=== PATIENT | female | born 1940 | race Caucasian/White ===

== ENCOUNTER → 2017-01-26 | Outpatient (CLI) | payer MEDICARE, OTHER ==
[~2017-01-26] MED LIST: AMLO5TAB2 PO; ASPI-557 PO; CALC-727 PO; CEPH500C2 PO; CETI10CA19 PO; FURO40TA5 PO; GLUC-176 PO; LISI-621 PO; ONDA-55 PO; OXYC1TAB8 PO; RANI150T7 PO; SIMV20TA6 PO; SOTA80TA PO; WARF4TAB6 PO
[2017-01-26 10:30] LABS: ALBUMIN 4.1 G/DL (3.5-5.0); ALBUMIN/GLOBULIN RATIO 1.4 RATIO (1.1-2.2); ALKALINE PHOSPHATASE 75 U/L (38-126); ALT (SGPT) 23 U/L (9-52); ANION GAP 11 MEQ/L (5-15); AST (SGOT) 27 U/L (14-36); BUN/CREATININE RATIO 25 RATIO (6-26); CHLORIDE 105 MEQ/L (98-107); CO2 - CARBON DIOXIDE 29 MEQ/L (22-30); CREATININE 0.8 MG/DL (0.7-1.2); GLOMERULAR FILTRATION RATE 70; GLUCOSE 89 MG/DL (65-110); MAGNESIUM 2.1 MG/DL (1.6-2.3); POTASSIUM 4.1 MEQ/L (3.6-5); SODIUM 145 MEQ/L (134-144)
[2017-01-28 00:36] LABS: LDL CHOLESTEROL,CALCULATED 122.4 (66-159); RISK FACTOR 4.6 RATIO (0-4.0); VLDL CHOLESTEROL 23.6 MG/DL (0-28)
== END ==
LOC: LAB 10:03
PROVIDERS: ATTEND Internal Medicine
DX: E78.5 Hyperlipidemia, unspecified (principal); I48.91 Unspecified atrial fibrillation; I10 Essential (primary) hypertension; Z79.899 Other long term (current) drug therapy
CPT/HCPCS: 36415; 80053; 80061; 83735

== ENCOUNTER 2017-06-10 07:30 | Inpatient (IN) ==
--- NOTE | 2017-07-14 16:48 | Orthopedic History & Physical ---
Orthopedic HPI - HPI Comments Araseli complains of moderate left knee pain. It has been present for years and is described as dull. It is worse with weather changes, prolonged sitting or activity. She has pain at night that awakens her from sleep and cannot walk distances due to pain / weakness /deformity. She has tried Tylenol, steroid injections and rest. She cannot take nsaids due to being on Coumadin. She takes Coumadin for prevention of DVT and PE that she had in the past. Araseli is wanting to proceed with TKA. [facility] Patient Stated Medical History Cerebrovascular Accident Yes: per ortho h&p Peripheral Neuropathy Yes Transient Ischemic Attacks ( Yes: per h&p TIA) Hypertension Yes Pulmonary Embolism Yes: and DVT Sleep Apnea No Gastroesophageal Reflux Yes Disease Hx Incontinence Yes Osteoarthritis Yes Clinic Medical History (Last Reviewed 05/03/17 @ 15:58 by Mike King MD) Atrial fibrillation (Acute Medical) Breast cancer (Acute Medical) GERD (gastroesophageal reflux disease) (Acute Medical) High blood pressure (Acute Medical) High cholesterol (Acute Medical) Neuropathy (Acute Medical) Pacemaker (Acute Medical) Pneumonia (Acute Medical) Stroke (Acute Medical) Family History: Family History (Last Reviewed 05/03/17 @ 15:58 by Mike King MD) Mother Breast cancer Sister Breast cancer Brother Colon cancer - Social History Smoking status: Never smoker Review of Systems - Constitutional Constitutional: Absent: chills, fatigue, fever(s) - Cardiovascular Cardiovascular: Absent: chest pain, palpitations, syncope - Respiratory Respiratory: Absent: cough, dyspnea, hemoptysis, dyspnea on exertion - Gastrointestinal Gastrointestinal: Absent: abdominal pain, diarrhea, nausea, vomiting - Musculoskeletal Musculoskeletal: Present: as per HPI - Integumentary/Breasts Integumentary: Absent: lesions, wounds - Neurological Neurological: Absent: numbness, tingling - Hematologic/Lymphatic Hematologic/Lymphatic: Present: easy bruising (She is on Coumadin.) Medications Home Medications Medication Instructions Recorded Confirmed Type Amlodipine Besylate 5 mg PO DAILY #0 01/19/15 05/03/17 History Aspirin [Aspir 81] 81 mg PO DAILY #0 01/19/15 05/03/17 History Cetirizine HCl [Zyrtec] 10 mg PO DAILY #0 01/19/15 05/03/17 History Furosemide 20 mg PO QOD #0 01/19/15 05/03/17 History Simvastatin 20 mg PO HS #0 01/19/15 05/03/17 History raNITIdine HCl [Ranitidine HCl] 150 mg PO HS #0 01/19/15 05/03/17 History Calcium Carbonate/Vitamin D3 1 tab PO BID #0 02/11/16 05/03/17 History [Calcium 600-Vit D3 200 Tablet] Lisinopril 20 mg PO BID #0 02/11/16 05/03/17 History Warfarin Sodium 4 mg PO DAILY #0 02/11/16 07/14/17 History Gabapentin [Gabapentin] 300 mg PO HS 05/03/17 05/03/17 History Mirabegron [Myrbetriq] 25 mg PO HS 05/03/17 05/03/17 History Protonix (Pantoprazole)40 mg 40 mg PO DAILY 90 Days 05/03/17 05/03/17 History tablet,delayed release glucosamine-chondroitin 250 mg-200 1 tab PO BID tab 05/03/17 05/03/17 History mg tablet sotalol 80 mg tablet 80 mg PO BID #0 tab 05/03/17 05/03/17 History Enoxaparin [Lovenox] 80 mg SQ BID 07/14/17 07/14/17 History Allergies Allergy/AdvReac Type Severity Reaction Status Date / Time budesonide Allergy Unknown Hives Verified 07/12/17 11:26 Orthopedic Exam - Constitutional General Appearance: Present: alert, cooperative, no acute distress - Respiratory Exam Present: non-labored - Cardiovascular Exam Present: pedal pulses intact Capillary Refill: < 2-3 Seconds - Abdominal Exam Present: soft. Absent: tenderness, distended - Extremities Exam Present: pulses intact, normal capillary refill. Absent: calf tenderness - Knee Exam left Knee Exam: Present: tender along joint line, Valgus deformity, stable to ligament exam, effusion - Integumentary Exam Present: pink, warm, dry - Neurological Exam Present: intact to light touch, no deficits - Psychiatric Exam Present: alert, normal affect Orthopedic Assessment and Plan (1) Primary osteoarthritis of left knee Status: Acute Assessment and Plan: Due to severity of symptoms, xray findings, and failure of non-surgical treatment, Dr King has recommended a left TKA. Risk, benefits, alternative treatments, and possible complications of surgery were discussed. Questions were answered to her satisfaction. Plan f/u 3 weeks post op. - Anticoagulation Therapy Anticoagulation: Resume home anticoagulant Hospital Course Summary Disclaimer: The visit summary below is not to be considered part of the above Progress Note.
[2017-07-15] MEDS ORDERED: FAMOTIDINE PB 20 MG/50 ML BAG IV ONE (06:00)
[2017-07-15] MEDS ORDERED: METOCLOPRAMIDE 10mg/2ml INJECTION IVP ONE (06:00)
[2017-07-15] MEDS ORDERED: LIDOCAINE 1% (10mg/ml) 2mL INJ PF SDV ID ONE (06:00)
[2017-07-15] MEDS ORDERED: DEXAMETHASONE 4 MG/ML INJECTION IVP ONE (06:00)
[2017-07-15] MEDS ORDERED: ONDANSETRON 4 MG/2 ML INJECTION IVP ONE (06:00)
[2017-07-15] MEDS ORDERED: ACETAMINOPHEN 500 MG TABLET PO ONE (06:00)
[2017-07-15] MEDS ORDERED: NOZIN NASAL SWAB NAS ONE ×2 (06:00→12:13)
--- OUTSIDE RECORDS SUMMARY | 2017-07-15 06:45 | External Medical Summary ---
:1940 Author Organization eClinicalWorks Care Team Providers Name Role Phone Valarie Gil Provider Role Unavailable Allergies, Adverse Reactions, Alerts Substance Reaction Event Type N.K.D.A. 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 Active Medications Medication Code Code Instructions Start End Date Status Dos[place] [address]-53 80 MG Orally 1 tablet 61-01 Twice a [place] Calcium + [place] [address]-14 600-200 MG-UNIT not defined 56-52 Orally Pantoprazole NDC 15837-71 40 MG Orally 1 tablet Sodium 07-01 Once a day Furosemide NDC 13171-30 40 MG Orally 1/2 tablet 99-25 [place] [address]-92 Orally not defined Triple Strength 120 Allergy Relief NDC 39561-60 10 MG Orally 1 tablet 12-39 Once a day Pantoprazole NDC 58061-45 40 MG Orally BID March 21, tablet Sodium 07-01 for 4 weeks then 2014 one tab a day Ranitidine & NDC 0 150 MG Orally 1 tablet Diet Manage Prod [place] [address]-52 4 MG Orally Once 1 tablet 04-01 [place] [address]-35 20 MG Orally 1 tablet in 54-10 Once [place] [address]-06 20 MG Orally 1 tablet 68-01 [place] [address]-01 5 MG Orally Once 1 tablet Besylate 01-20 a day Aspirin Adult NDC 11178-74 81 MG Orally 1 tablet Low Strength 77-48 Once a day Procedures Procedure Coding System Code Date Office Visit, Est Pt., Level 3 CPT-4 94317 March 21, 2015 Vital Signs Date/Time: March 21, 2015 Blood Pressure Systolic 130 mm Hg Weight 188.2 lbs Height 67 in BMI 29.47 Index Respiratory Rate 16 /min Cardiac Monitoring Heart Rate 68 /min Blood Pressure Diastolic 82 mm Hg Results Name Result Date Reference Range Unit Abnormality Flag CT Scan : Abdomen / Pelvis with contrast, Pancreatic Protocol Summary Purpose eClinicalWorks Submission
--- OUTSIDE RECORDS SUMMARY | 2017-07-15 06:45 | External Medical Summary | Referral Summary ---
:1940 Author Organization [facility] Address [address] [address] Care Team Providers Name Role Phone Tyson Chen Primary Care Physician Encounter VC Date(s): 11/30/16 - 11/30/16 [facility] [address] [address] [place] Discharge Diagnosis: Acute maxillary sinusitis Discharge Disposition: 01-Home or Self Care Attending Physician: Tyson Chen DO Vital Signs Most recent to oldest [Reference Range]: 1 Temperature Tympanic [36.6-38.1 degC] 36.5 degC *LOW* (11/30/16 11:13 AM) Peripheral Pulse Rate [60-100 bpm] 88 bpm (11/30/16 11:13 AM) Respiratory Rate [14-20 br/min] 16 br/min (11/30/16 11:13 AM) Blood Pressure [90-140/60-90 mmHg] 132/84 mmHg (11/30/16 11:13 AM) Problem List Condition Effective Dates Status Health Status Informant Anxiety state (finding)(Confirmed) Active Atrial fibrillation(Confirmed) Active Benign essential hypertension Active (disorder)(Confirmed) Degenerative joint disease of pelvis Active (disorder)(Confirmed) GERD (gastroesophageal reflux Active disease)(Confirmed) Hyperlipidemia(Confirmed) Active Malignant neoplasm of female breast Active (disorder)(Confirmed) Osteoarthrosis(Confirmed) Active Pulmonary embolism(Confirmed) Active Transient ischemic attack(Confirmed) Active Allergies, Adverse Reactions, Alerts Substance Reaction Severity Status budesonide Hives Active Tape Adverse Reaction Active Tape Adverse Reaction Active Medications Allergy Relief 1 tabs, Oral, Daily, Allergy Relief-D (loratadine) 5 mg-120 mg tablet, extended release Start Date: 08/21/14 Status: OrderedamLODIPine 5 mg oral tablet 1 tabs, Oral, Daily, 0 Refill(s) Start Date: 01/30/15 Status: Orderedamoxicillin 875 mg oral tablet 875 mg 1 tabs, Oral, BID, X 10 days, # 20 tabs, 0 Refill(s), Pharmacy: [facility], 1 tabsOral BID,x10 days Start Date: 11/30/16 Stop Date: 12/10/16 Status: OrderedAspir 81 oral delayed release tablet 1 tabs, Oral, Daily Start Date: 08/21/14 Status: SuspendedCalcium 600+D Oral, 0 Refill(s) Start Date: 01/30/15 Status: Orderedcarvedilol 3.125 mg oral tablet 1 tabs, Oral, BID, with food Start Date: 08/21/14 Status: OrderedFlonase 50 mcg/inh nasal spray 2 sprays, Nasal, Daily, # 16 g, 0 Refill(s), Pharmacy: [facility] Start Date: 11/30/16 Status: Orderedfurosemide 40 mg oral tablet See Instructions, 0.5 mg tabs Oral every other day, 0 Refill(s) Start Date: 01/16/15 Status: Orderedlisinopril 20 mg oral tablet 2 tabs, Oral, Daily Start Date: 08/21/14 Status: OrderedOsteo Bi-Flex 2 caps, Daily Start Date: 08/21/14 Status: Orderedpantoprazole 40 mg oral delayed release tablet 40 mg 1 tabs, Oral, Daily, X 90 days, # 90 tabs, 3 Refill(s), Pharmacy: [facility], 1 tabs Oral Daily,x90 days Start Date: 11/30/16 Stop Date: 11/25/17 Status: OrderedraNITIdine 150 mg oral tablet See Instructions, TAKE 1 TABLET ONE TIME DAILY AT BEDTIME, # 90 tabs, 2 Refill(s ), eRx: [facility] Start Date: 10/06/16 Status: Orderedsimvastatin 20 mg oral tablet 1 tabs, Oral, qPM Start Date: 08/21/14 Status: Orderedsotalol 80 mg oral tablet 1 tabs, Oral, BID, # 180 tabs, 0 Refill(s) Start Date: 01/16/15 Status: OrderedtraMADol 50 mg oral tablet 50 mg 1 tabs, Oral, q6hr, as needed for pain, # 60 tabs, 0 Refill(s) Start Date: 04/16/15 Status: Orderedwarfarin 4 mg oral tablet 1 tabs, Oral, Daily, # 30 tabs, 0 Refill(s) Start Date: 01/16/15 Status: Suspended Results No data available for this section Immunizations Given and Recorded Vaccine Date Status Refusal Reason influenza virus vaccine, live 06/24/09 Given pneumococcal 13-valent conjugate vaccine 07/27/16 Given pneumococcal 23-polyvalent vaccine 06/24/09 Recorded Procedures Procedure Date Related Diagnosis Body Site Pacemaker1 2010 Colonoscopy 02/14/10 Breast implant displaced Mastectomy Total hip replacement 1See NextGen Social History Social History Type Response Smoking Status Never smoker Assessment and Plan Extracted from: Title: Ambulatory Patient Education Author: Tyson Chen DO Date: Allergy Sinusitis, Adult Sinusitis is redness, soreness, and puffiness (inflammation) of the air pockets in the bones of your face (sinuses). The redness, soreness, and puffiness can cause air and mucus to get trapped in your s inuses. This can allow germs to grow and cause an infection. HOME CARE Drink enough fluids to keep your pee (urine) clear or pale yellow. Use a humidifier in your home. Run a hot shower to create steam in the bathroom. Sit in the bathroom with the door closed. Breathe in the steam 34 times a day. Put a warm, moist washcloth on your face 34 times a day, or as told by your doctor. Use salt water sprays (saline sprays) to wet the thick fluid in your nose. This can help the sinuses drain. Only take medicine as told by your doctor. GET HELP RIGHT AWAY IF: Your pain gets worse. You have very bad headaches. You are sick to your stomach (nauseous). You throw up (vomit). You are very sleepy (drowsy) all the time. Your face is puffy (swollen). Your vision changes. You have a stiff neck. You have trouble breathing. MAKE SURE YOU: Understand these instructions. Will watch your condition. Will get help right away if you are not doing well or get worse. This information is not intended to replace advice given to you by your health care provider. Make sure you discuss any questions you have with your health care provider. Document Released: 03/08/2009 Document Revised: 10/11/2015 Document Reviewed: 04/25/2013 [employer] Interactive Patient Education 2016 [employer] No follow up information was provided. Extracted from: Title: Upper Respiratory Infection * Author: Tyson Chen DO Date: Impression and Plan Diagnosis Acute maxillary sinusitis ([id number]-RE J01.00, Discharge, Medical). Plan: sx tx: tylenol, motrin, fluids, rest; otc cough and cold prn cool mist humidifier rx: amoxil rx: flonase . Patient Instructions: Sinusitis, Adult, [id number].
--- OUTSIDE RECORDS SUMMARY | 2017-07-15 06:45 | External Medical Summary ---
:1939 Author Organization eClinicalWorks Care Team Providers Name Role Phone Robbin Chakraborty Provider Role Unavailable Allergies No Known Allergies Problems No Known Problems Medications No Known Medications Results No Known Results Summary Purpose eClinicalWorks Submission
--- OUTSIDE RECORDS SUMMARY | 2017-07-15 06:46 | External Medical Summary | Referral Summary ---
:1939 Author Organization [facility] [address] [place] [address], Family Medicine Address [address] [address] Care Team Providers Name Role Phone Tyson Chen Primary Care Physician Encounter VC Date(s): 07/27/16 - 07/27/16 [facility] [address] [place] [address], Family Medicine [address] [address] [place] Discharge Disposition: 01-Home or Self Care Attending Physician: Tyson Chen DO Admitting Physician: Tyson Chen DO Vital Signs Most recent to oldest [Reference Range]: 1 Blood Pressure [90-140/60-90 mmHg] 142/62 mmHg *HI* (07/27/16 10:01 AM) Problem List Condition Effective Dates Status [...] Daily, 0 Refill(s) Start Date: 01/30/15 Status: OrderedAspir 81 oral delayed release tablet 1 tabs, Oral, Daily Start Date: 08/21/14 Status: SuspendedCalcium 600+D Oral, 0 Refill(s) Start Date: 01/30/15 Status: Orderedcarvedilol 3.125 mg oral tablet 1 tabs, Oral, BID, with food Start Date: 08/21/14 Status: Orderedfurosemide 40 mg oral tablet See Instructions, 0.5 mg tabs Oral every other day, 0 Refill(s) Start Date: 01/16/15 Status: Orderedlisinopril 20 mg oral tablet 2 tabs, Oral, Daily Start Date: 08/21/14 Status: OrderedOsteo Bi-Flex 2 caps, Daily Start Date: 08/21/14 Status: Orderedranitidine 150 mg oral tablet See Instructions, TAKE 1 TABLET ONE TIME DAILY AT BEDTIME, # 90 tabs, 2 Refill(s ), eRx: [facility], TAKE 1 TABLET ONE TIME DAILY AT BEDTIME Start Date: 03/05/16 Status: Orderedsimvastatin 20 mg oral tablet 1 [...] No data available for this section Immunizations Vaccine Date Refusal Reason influenza virus vaccine, live 06/24/09 pneumococcal 13-valent conjugate vaccine 07/27/16 pneumococcal 23-polyvalent vaccine 06/24/09 Procedures Procedure Date Related Diagnosis Body Site Pacemaker1 2010 Colonoscopy 02/14/10 Breast implant displaced Mastectomy Total hip replacement 1See NextGen Social History Social History Type Response Smoking Status Never smoker Assessment and Plan No data available for this section
--- OUTSIDE RECORDS SUMMARY | 2017-07-15 06:46 | External Medical Summary ---
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
--- OUTSIDE RECORDS SUMMARY | 2017-07-15 06:46 | External Medical Summary ---
:1939 Author Organization [facility] Address [address] [place] [address] Care Team Providers Name Role Phone Thao De La Rosa Unavailable Unavailable PROBLEMS Type Condition ICD9-CM [id number] Onset Condition SNOMED Code Code Code Dates Status Problem High risk medication Z79.899 Active 593687265 use Problem PFO (patent foramen Q21.1 Active 513361105 [place]) Problem Presence of cardiac Z95.0 Active 053007498 pacemaker Problem Congestive heart I50.9 Active 15713030 failure Problem Hyperlipidemia E78.5 Active 63661976 Problem Atrial fibrillation I48.91 Active 99284764 Problem Esophageal reflux K21.9 Active 354942098 Problem Hypertension I10 Active 82384672 Problem Tricuspid valve I36.9 Active 551939839 disorders, non-rheumatic Problem Bradycardia, R00.1 Active 36234798 unspecified Problem Cerebrovascular I67.9 Active 61821392 disease Problem Syncope and collapse R55 Active 037103530 Problem Cardiomegaly I51.7 Active 2887581 Problem Diastolic CHF I50.30 Active 427671487 Problem Carotid disease, I77.9 Active 188648919 bilateral Problem Atrial septal defect Q21.1 Active 77417068 Problem Chronic Z79.01 Active 354563923 anticoagulation ALLERGIES Unknown Allergies SOCIAL HISTORY No smoking Hx information available PLAN OF CARE VITAL SIGNS MEDICATIONS Unknown Medications RESULTS No Results PROCEDURES No Known procedures IMMUNIZATIONS No Known Immunizations
--- OUTSIDE RECORDS SUMMARY | 2017-07-15 06:46 | External Medical Summary | Referral Summary ---
:1939 Author Organization [facility] Address [address] [address] Care Team Providers Name Role Phone Tyson Chen Primary Care Physician Encounter VC Date(s): 04/16/15 - 04/16/15 [facility] [address] [address] [place] Discharge Diagnosis: Sternal fracture Discharge Diagnosis: Pre-op exam Discharge Diagnosis: Ruptured silicone breast implant Discharge Disposition: 01-Home or Self Care Attending Physician: Tyson Chen DO Admitting Physician: Tyson Chen DO Vital Signs Most recent to oldest [Reference Range]: 1 Temperature Oral [35.8-37.3 degC] 36.4 degC (04/16/15 9:25 AM) Peripheral Pulse Rate [60-100 bpm] 84 bpm (04/16/15 9:25 AM) Respiratory Rate [14-20 br/min] 18 br/min (04/16/15 9:25 AM) Blood Pressure [90-140/60-90 mmHg] 130/80 mmHg (04/16/15 9:25 AM) Problem List Condition Effective Dates Status [...] tabs, Oral, Daily Start Date: 08/21/14 Status: OrderedCalcium 600+D Oral, 0 Refill(s) Start Date: 01/30/15 [...] Daily, X 90 days, # 90 tabs, 1 Refill(s), Pharmacy: [facility], 1 tabs Oral Daily,x90 days Start Date: 10/14/15 Stop Date: 04/11/16 Status: Orderedsimvastatin 20 mg oral tablet 1 [...] tabs, 0 Refill(s) Start Date: 01/16/15 Status: OrderedZantac 150 oral tablet See Instructions, TAKE 1 TABLET ONE TIME DAILY AT BEDTIME, # 90 tabs, 2 Refill(s ), eRx: [facility], TAKE 1 TABLET ONE TIME DAILY AT BEDTIME Start Date: 06/11/15 Status: Ordered Results Hematology Most recent to oldest [Reference Range]: 1 WBC [4.8-10.8 10*3/uL] 8.3 10*3/uL (04/16/15 10:17 AM) RBC [4.00-5.20 10*6/uL] 4.52 10*6/uL (04/16/15 10:17 AM) Hgb [12.0-16.0 gm/dL] 14.1 gm/dL (04/16/15 10:17 AM) Hct [37.0-47.0 %] 43.3 % (04/16/15 10:17 AM) MCV [82.0-99.0 fL] 95.8 fL (04/16/15 10:17 AM) MCH [27.0-32.0 pg] 31.2 pg (04/16/15 10:17 AM) MCHC [32.0-36.0 gm/dL] 32.6 gm/dL (04/16/15 10:17 AM) RDW [11.5-14.5 %] 13.9 % (04/16/15 10:17 AM) Platelet [150-400 10*3/uL] 378 10*3/uL (04/16/15 10:17 AM) MPV [8.8-14.8 fL] 9.7 fL (04/16/15 10:17 AM) Immature Granulocytes [0.0-1.0 %] 0.1 % (04/16/15 10:17 AM) Neutrophils [51-75 %] 72 % (04/16/15 10:17 AM) Lymphocytes [20-46 %] 17 % *LOW* (04/16/15 10:17 AM) Monocytes [4-11 %] 9 % (04/16/15 10:17 AM) Eosinophils [0-4 %] 2 % (04/16/15 10:17 AM) Basophils [0-2 %] 0 % (04/16/15 10:17 AM) Neutro Absolute [1.90-7.00 10*3] 5.95 10*3 (04/16/15 10:17 AM) Lymph Absolute [0.80-3.30 10*3] 1.45 10*3 (04/16/15 10:17 AM) [place] Absolute [0.30-1.00 10*3] 0.71 10*3 (04/16/15 10:17 AM) Eos Absolute [0.00-0.50 10*3] 0.18 10*3 (04/16/15 10:17 AM) Baso Absolute [0.00-0.20 10*3] 0.02 10*3 (04/16/15 10:17 AM) Chemistry Most recent to oldest [Reference Range]: 1 Sodium Lvl [135-144 mEq/L] 144 mEq/L (04/16/15 10: AM) Potassium Lvl [3.5-5.2 mEq/L] 4.2 mEq/L (04/16/15: AM) Chloride [99-111 mEq/L] 108 mEq/L (04/16/15: AM) CO2 [22-31 mEq/L] 29 mEq/L (04/16/15: AM) AGAP [3-20] 7 (04/16/15: AM) BUN [10-20 mg/dL] 22 mg/dL *HI* (04/16/15 10: AM) Glucose Lvl [70-99 mg/dL] 81 mg/dL (04/16/15: AM) Creatinine Lvl [0.57-1.11 mg/dL] 0.82 mg/dL (04/16/15 10: AM) eGFR [>60 mL/min] >60 mL/min 1 (04/16/15: AM) Calcium Lvl [8.9-10.5 mg/dL] 10.7 mg/dL *HI* (04/16/15 10: AM) Albumin Lvl [3.4-4.8 gm/dL] 4.1 gm/dL (04/16/15: AM) Total Protein [6.2-8.1 gm/dL] 6.8 gm/dL (04/16/15:17 AM) Globulin [1.8-4.0 gm/dL] 2.7 gm/dL (04/16/15: AM) ALT [0-55 U/L] 9 U/L (7/14/15 10:17 AM) AST [5-34 U/L] 16 U/L (04/16/15 10:17 AM) Alk Phos [40-150 U/L] 92 U/L (04/16/15 10:17 AM) Bili Total [0.2-1.2 mg/dL] 0.6 mg/dL (04/16/15 10:17 AM) 1Result Comment: Multiply eGFR results by 1.21 for race. Immunizations Vaccine Date Refusal Reason influenza virus vaccine, live 06/24/09 pneumococcal 23-polyvalent vaccine 06/24/09 Procedures Procedure Date Related Diagnosis Body Site Pacemaker1 2010 Mastectomy Total hip replacement 1See NextGen Social History Social History Type Response Smoking Status Never smoker Assessment and Plan Extracted from: Title: Preop clearance Author: Tyson Chen DO Date: 04/16/15 Impression and Plan Diagnosis Pre-op exam (ICD9 V72.84, Discharge, Medical). Ruptured silicone breast implant (ICD9 996.54, Discharge, Medical). Sternal fracture (ICD9 807.2, Discharge, Medical). Plan: EKG- paced; nonspecific -- will contact dr amanda for review CXR lab preopclearance given on hear from dr amanda disc post op care .
--- OUTSIDE RECORDS SUMMARY | 2017-07-15 06:46 | External Medical Summary ---
:1939 Author Organization [facility] Address [address] [place] [address] Care Team Providers Name Role Phone Carley Torres Unavailable Unavailable PROBLEMS Type Condition ICD9-CM [id number] Onset Condition SNOMED Code Code Code Dates Status Problem PFO (patent foramen Q21.1 Active 316392986 ovale) Problem Atrial fibrillation I48.91 Active 90503015 Problem Esophageal reflux K21.9 Active 297318189 Problem Pacemaker Z95.0 Active 548849811 Problem Pulmonary embolism I26.99 Active 24376178 Problem Hypertension I10 Active 79574633 Problem Tricuspid valve I36.9 Active 223730337 disorders, non-rheumatic Problem Congestive heart I50.9 Active 66988520 failure Problem Hyperlipidemia E78.5 Active 66499164 Problem Cerebrovascular I67.9 Active 52125647 disease Problem Diastolic CHF I50.30 Active 312089846 Problem 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 Unknown Non Drug Allergy Apr, Unknown SOCIAL HISTORY No smoking Hx information available PLAN OF CARE Activity Details Follow Up [facility] patient, 3 Months Reason:null VITAL SIGNS Height 5 ft 8 in in 2017-04-08 Weight 191.4 lbs 2017-04-08 BMI 29.10 kg/m2 2017-04-08 Oximetry 98 % 2017-04-08 Heart Rate 64 /min 2017-04-08 Blood pressure systolic 142 mm Hg 2017-04-08 Blood pressure diastolic 76 mm Hg 2017-04-08 MEDICATIONS Medication Instructions Dosage Frequency Start End Duration Status Date Date Norvasc 5 MG Orally Once a 1 tablet 24h Jul, Active day 2014 Simvastatin 20 Orally Once a 1 tablet in 24h Active MG day the evening Sotalol HCl 80 Orally Twice a 1 tablet 12h Mar, Active MG day 2016 Osteo Bi-Flex Orally Once a 1 tablet 24h Active Regular day with a meal Strength 250-200 MG Furosemide 40 Orally every 1/2 tablet Active MG other day Coumadin 4 MG Orally Once a 1 tablet or 24h Mar, Active day 1.5 tablet 2016 as directed Cetirizine HCl Orally Once a 1 tablet 24h 30 day(s) Active 10 MG day Aspirin 81 MG Orally Once a 1 tablet 24h Active day Lisinopril 10 Orally Once a 1 tablet 24h Mar, Active MG day 2016 Calcium + D3 Active 600-200 MG-UNIT Ranitidine 150 Orally daily 1 tablet 24h Active MG RESULTS No Results PROCEDURES Procedure Date Ordered Related Diagnosis Body Site Ofc Program PM Dual, Staff April 08, 2017 Office Visit, Est Pt., Level 4 April 08, 2017 IMMUNIZATIONS No Known Immunizations
--- OUTSIDE RECORDS SUMMARY | 2017-07-15 06:46 | External Medical Summary | Referral Summary ---
:1939 Author Care Team Providers Name Role Phone Tyson Chen Primary Care Physician Encounter VC Date(s): 01/16/15 - 01/16/15 [facility], [address] [place] [address], Family Medicine [address] [address] [facility] Discharge Diagnosis: OA (osteoarthritis) Discharge Diagnosis: GERD (gastroesophageal reflux disease) Discharge Disposition: Home or Self Care Attending Physician: Tyson Chen DO Admitting Physician: Tyson Chen DO Vital Signs Most recent to oldest [Reference Range]: 1 Temperature Oral [35.8-37.3 degC] 36.3 degC (01/16/15 10:43 AM) Peripheral Pulse Rate [60-100 bpm] 60 bpm (01/16/15 10:43 AM) Respiratory Rate [14-20 br/min] 16 br/min (01/16/15 10:43 AM) Blood Pressure [90-140/60-90 mmHg] 130/74 mmHg (01/16/15 10:43 AM) Problem List Condition Effective Dates Status [...] (loratadine) 5 mg-120 mg tablet, extended release Special Instructions: Allergy Relief-D (loratadine) 5 mg-120 mg tablet, extended release Start Date: 08/21/14 Status: OrderedAspir 81 oral delayed release tablet 1 tabs, Oral, Daily Start Date: 08/21/14 Status: Orderedcarvedilol 3.125 mg oral tablet 1 tabs, Oral, BID, with food Special Instructions: with food Start Date: 08/21/14 Status: Orderedfurosemide 40 mg oral tablet See Instructions, 0.5 mg tabs Oral every other day, 0 Refill(s) Special Instructions: 0.5 mg tabs Oral every other day Start Date: 01/16/15 Status: Orderedlisinopril 20 mg oral tablet 2 tabs, Oral, Daily Start Date: 08/21/14 Status: OrderedOsteo Bi-Flex 2 caps, Daily Start Date: 08/21/14 Status: Orderedpantoprazole 40 mg oral delayed release tablet 1 tabs, Oral, Daily, X 90 days, # 90 tabs, 3 Refill(s), Pharmacy: [facility] , 1 tabs Oral Daily,x90 days Start Date: 08/22/14 Stop Date: 08/17/15 Status: Orderedsimvastatin 20 mg oral tablet 1 tabs, Oral, qPM Start Date: 08/21/14 Status: Orderedsotalol 80 mg oral tablet 1 tabs, Oral, BID, # 180 tabs, 0 Refill(s) Start Date: 01/16/15 Status: Orderedwarfarin 4 mg oral tablet 1 tabs, Oral, Daily, # 30 tabs, 0 Refill(s) Start Date: 01/16/15 Status: OrderedZantac 150 oral tablet 1 tabs, Oral, Bedtime (once a day), # 90 tabs, 1 Refill(s), Pharmacy: [facility], 1 tabs Oral Bedtime (once a day) Start Date: 08/22/14 Status: Ordered Results No data available for this section Immunizations Vaccine Date Refusal Reason influenza virus vaccine, live 06/24/09 pneumococcal 23-polyvalent vaccine 06/24/09 Procedures Procedure Date Related Diagnosis Body Site Pacemaker1 2010 Mastectomy Total hip replacement 1See [facility] Social History Social History Type Response Smoking Status Never smoker Assessment and Plan Extracted from: Title: Reflux Esophagitis * OA Author: Tyson Chen DO Date: 01/16/15 Impression and Plan Diagnosis GERD (gastroesophageal reflux disease) (ICD9 530.81, Discharge, Medical). OA (osteoarthritis) (ICD9 715.90, Discharge, Medical). Plan: refer to EGD and colonoscopy - dr davies continue with current meds and lifestyle modifications, refer for mammo , continue with exercise tylenol for arthritis pain voltaren gel as needed f/u as needed.
--- OUTSIDE RECORDS SUMMARY | 2017-07-15 06:46 | External Medical Summary | Referral Summary ---
:1939 Author Organization [facility] [address] [place] [address], Family Medicine Address [address] [address] Care Team Providers Name Role Phone Tyson Chen Primary Care Physician Encounter VC Date(s): 02/14/16 - 02/14/16 [facility] [address] [place] [address], Family Medicine [address] [address] [place] Discharge Diagnosis: Pulmonary embolism Discharge Disposition: 01-Home or Self Care Attending Physician: Tyson Chen DO Admitting Physician: Tyson Chen DO Vital Signs Most recent to oldest [Reference Range]: 1 Temperature Tympanic [36.6-38.1 degC] 36.8 degC (02/14/16 3:39 PM) Peripheral Pulse Rate [60-100 bpm] 68 bpm (02/14/16 3:39 PM) Respiratory Rate [14-20 br/min] 16 br/min (02/14/16 3:39 PM) Blood Pressure [90-140/60-90 mmHg] 140/90 mmHg (02/14/16 3:39 PM) Problem List Condition Effective Dates Status Health [...] days, # 90 tabs, 1 Refill(s), Pharmacy: [facility], 1 tabs Oral Daily,x90 [...] tabs, 0 Refill(s) Start Date: 01/16/15 Status: SuspendedZantac 150 oral tablet See Instructions, TAKE 1 TABLET ONE TIME DAILY AT BEDTIME, # 90 tabs, 2 Refill(s ), eRx: [facility], TAKE 1 TABLET ONE TIME DAILY AT BEDTIME Start Date: 06/11/15 Status: Ordered Results No data available for this section Immunizations Vaccine Date Refusal Reason influenza virus vaccine, live 06/24/09 pneumococcal 23-polyvalent vaccine 06/24/09 Procedures Procedure Date Related Diagnosis Body Site Pacemaker1 2010 Mastectomy Total hip replacement 1See [facility] Social History Social History Type Response Smoking Status Never smoker Assessment and Plan Extracted from: Title: General Complaint * Author: Tyson Chen DO Date: 02/14/16 Impression and Plan Diagnosis Pulmonary embolism (WUR38-SA I26.99, Discharge, Medical). Plan: reviewed ER records now off of lovenox and on coumadin 6mg - last INR was 2.7 ( done by cardio) conitnue with routine post op care continue with current meds f/u as needed.
--- OUTSIDE RECORDS SUMMARY | 2017-07-15 06:46 | External Medical Summary ---
:1939 Author Organization [employer] Care Team Providers Name Role Phone Kimmy De La Rosalpa Provider Role Unavailable Allergies, Adverse Reactions, Alerts Substance Reaction Event Type N.K.D.A. Info Not Available Non Drug Allergy Problems Problem Type Condition Code Onset Dates Condition Status Assessment PFO 745.5 Active Assessment S/P Pacemaker Placement - Dual V45.01 Active Assessment Atrial fibrillation 427.31 Active Assessment Esophageal reflux 530.81 Active Assessment Tricuspid valve disorders, 424.2 Active specified as nonrheumatic Assessment Hypertension 401.9 Active Assessment Hyperlipidemia 272.4 Active Assessment Congestive Heart Failure, 428.0 Active Unspecified Assessment Carotid disease, bilateral I77.9 Active Problem Presence of cardiac pacemaker Z95.0 Active Problem Esophageal reflux 530.81 Active Problem PFO (patent foramen ovale) Q21.1 Active Problem CHF, Diastolic Heart Failure, 428.30 Active Unspecified Problem Esophageal reflux K21.9 Active Problem Tricuspid valve disorders, I36.9 Active non-rheumatic Problem Atrial fibrillation I48.91 Active Problem Chronic Anticoagulation V58.61 Active Problem PFO 745.5 Active Problem Cardiomegaly 429.3 Active Problem Syncope 780.2 Active Assessment Sinus Bradycardia 427.89 Active Problem High Risk Med V58.69 Active Problem Atrial Septal Defect 745.5 Active Assessment Cerebrovascular disease, I67.9 Active unspecified Problem Hyperlipidemia E78.5 Active Problem Hypertension I10 Active Problem S/P Pacemaker Placement - Dual V45.01 Active Problem Congestive heart failure I50.9 Active Assessment Chronic Anticoagulation V58.61 Active Problem Atrial fibrillation 427.31 Active Assessment High Risk Med V58.69 Active Problem Tricuspid valve disorders, 424.2 Active specified as nonrheumatic Assessment Syncope 780.2 Active Problem Congestive Heart Failure, 428.0 Active Unspecified Assessment Cardiomegaly 429.3 Active Problem Sinus Bradycardia 427.89 Active Assessment CHF, Diastolic Heart Failure, 428.30 Active Unspecified Problem Chronic anticoagulation Z79.01 Active Assessment Atrial Septal Defect 745.5 Active Problem High risk medication use Z79.899 Active Problem Hypertension 401.9 Active Problem Hyperlipidemia 272.4 Active Medications Medication Code Code Instructions Start End Date Status Dosage System Date Norvasc [facility] 07739-98 5 MG Orally Once Jul 22, 1 tablet 30-41 a day 2014 Aspirin [facility] 48062-65 81 MG Orally 1 tablet 74-68 Once a day Simvastatin [facility] 81919-75 20 MG Orally 1 tablet in 54-10 Once a day the evening Warfarin Sodium [facility] 19032-74 4 MG Orally Once February 05, 1 tablet or -01 a day 2013 1.5 tablet as directed Ranitidine [facility] 0 150 MG Orally qd 1 tablet Pantoprazole [facility] 07169-79 40 MG Orally 1 tablet Sodium 07-01 Once a day Lisinopril [facility] 46483-14 20 MG Orally January 23, 1 tablet 68-01 twice a day 2013 Osteo Bi-Flex [facility] 91600-04 250-200 MG 1 tablet Regular Strength 134 Orally Once a with a meal day Sotalol HCl [facility] 28022-73 80 MG Orally 1 tablet 61-01 Twice a day Cetirizine HCl [facility] 99319-99 10 MG Orally 1 tablet 98-55 Once a day Calcium + D3 [facility] 07998-64 600-200 MG-UNIT not defined 56-52 [place] [address]-99 40 MG Orally qod Jul 22, 0.5 tablet 99-25 2014 Procedures Procedure Coding System Code Date Office Visit, Est Pt., Level 3 CPT-4 95684 Aug 15, 2015 Ofc Interrogation PM, Device Company CPT-4 81243 Aug 15, 2015 Vital Signs Date/Time: Aug 15, 2015 BMI 28.43 Index Weight 187 lbs Height 5 ft 8 in in Cardiac Monitoring Heart Rate 71 /min Oximetry 97 % Blood Pressure Diastolic 80 mm Hg Blood Pressure Systolic 130 mm Hg Results No Known Results Summary Purpose eClinicalWorks Submission
--- OUTSIDE RECORDS SUMMARY | 2017-07-15 06:46 | External Medical Summary ---
:1939 Author Organization [facility] Address [address] [place] [address] Care Team Providers Name Role Phone Thao De La Rosa Unavailable Unavailable PROBLEMS Type Condition ICD9-CM [id number] Onset Condition SNOMED Code Code Code Dates Status Problem High risk medication Z79.899 Active 615966793 use Problem PFO (patent foramen Q21.1 Active 200227131 [place]) Problem Presence of cardiac Z95.0 Active 745607503 pacemaker Problem Congestive heart I50.9 Active 14338424 failure Problem Hyperlipidemia E78.5 Active 18315268 Problem Atrial fibrillation I48.91 Active 71857436 Problem Esophageal reflux K21.9 Active 587407334 Problem Hypertension I10 Active 15323275 Problem Tricuspid valve I36.9 Active 927905649 disorders, non-rheumatic Problem Bradycardia, R00.1 Active 72798733 unspecified Problem Cerebrovascular I67.9 Active 02606574 disease Problem Syncope and collapse R55 Active 781282339 Problem Cardiomegaly I51.7 Active 1436201 Problem Diastolic CHF I50.30 Active 549611124 Problem Carotid disease, I77.9 Active 881420779 bilateral Problem Atrial septal defect Q21.1 Active 14047274 Problem Chronic Z79.01 Active 802386119 anticoagulation ALLERGIES Unknown Allergies SOCIAL HISTORY No smoking Hx information available PLAN OF CARE VITAL SIGNS MEDICATIONS Unknown Medications RESULTS No Results PROCEDURES No Known procedures IMMUNIZATIONS No Known Immunizations
--- OUTSIDE RECORDS SUMMARY | 2017-07-15 06:46 | External Medical Summary ---
:1939 Author Organization eClinicalWorks Care Team Providers Name Role Phone Thao De La Rosa Provider Role Unavailable Allergies No Known Allergies Problems Problem Type Condition Code Onset Dates Condition Status Problem Congestive Heart Failure, 428.0 Active Unspecified Problem Atrial fibrillation 427.31 Active Problem Sinus Bradycardia 427.89 Active Problem Chronic Anticoagulation V58.61 Active Problem PFO 745.5 Active Problem High Risk Med V58.69 Active Problem Hypertension 401.9 Active Problem Tricuspid valve disorders, specified 424.2 Active as nonrheumatic Problem S/P Pacemaker Placement - Dual V45.01 Active Problem Hyperlipidemia 272.4 Active Problem CHF, Diastolic Heart Failure, 428.30 Active Unspecified Problem Atrial Septal Defect 745.5 Active Problem Syncope 780.2 Active Problem Esophageal reflux 530.81 Active Problem Cardiomegaly 429.3 Active Medications No Known Medications Results No Known Results Summary Purpose [employer] Submission
--- OUTSIDE RECORDS SUMMARY | 2017-07-15 06:46 | External Medical Summary ---
:1939 Author Organization eClinicalWorks Care Team Providers Name Role Phone Jamir Hooper Provider Role Unavailable Allergies, Adverse Reactions, Alerts Substance Reaction Event Type N.K.D.A. Info Not Available Non Drug Allergy Problems Problem Type Condition ICD-9 Code Onset Dates Condition Status Assessment Gastric mass 537.9 Active Medications Medication Code Code Instructions Start End Status Dosage System Date Date Furosemide NDC 61751-81 40 MG Orally 1/2 tablet 99-25 everyother day Allergy Relief NDC 11755-59 10 MG Orally 1 tablet 12-39 Once a day Ranitidine & NDC 0 150 MG Orally 1 tablet Diet Manage Prod [place] [address]-18 5 MG Orally 4X's 1 tablet 04-01 daily with meals & at bedtime Sotalol HCl NDC 82949-98 80 MG Orally 1 tablet 61-01 [place]ice [place] [address]-98 Orally not Triple Strength 120 defined Calcium + [place] [address]-74 600-200 MG-UNIT not 56-52 Orally defined Pantoprazole NDC 19325-50 40 MG Orally 1 tablet Sodium 07-01 Once a day Amlodipine NDC 79078-29 5 MG Orally Once 1 tablet Besylate 01-20 a day Aspirin Adult Low NDC 98958-59 81 MG Orally 1 tablet Strength 77-48 Once a day Simvastatin NDC 73270-04 20 MG Orally 1 tablet 54-10 Once [place] the [place] [address]-81 20 MG Orally 1 tablet 68-01 [place] [address]-41 4 MG Orally Once 1 tablet 04-01 a day Procedures Procedure Coding System Code Date Office Visit, New Pt., Level 4 CPT-4 07281 February 19, 2015 Vital Signs Date/Time: February 19, 2015 Blood Pressure Systolic 140 mm Hg Weight 190.6 lbs Height 67 in BMI 29.85 Index Respiratory Rate 16 /min Cardiac Monitoring Heart Rate 60 /min Blood Pressure Diastolic 90 mm Hg Results No Known Results Summary Purpose eClinicalWorks Submission
--- OUTSIDE RECORDS SUMMARY | 2017-07-15 06:46 | External Medical Summary ---
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
--- OUTSIDE RECORDS SUMMARY | 2017-07-15 06:46 | External Medical Summary | Referral Summary ---
:1939 Author Organization [facility] [address] [place] [address], Family Medicine Address [address] [address] Care Team Providers Name Role Phone Tyson Chen Primary Care Physician Encounter VC Date(s): 01/27/16 - 01/27/16 [facility] [address] [place] [address], Family Medicine [address] [address] [place] Discharge Diagnosis: Preoperative clearance Discharge Disposition: 01-Home or Self Care Attending Physician: Tyson Chen DO Admitting Physician: Tyson Chen DO Vital Signs Most recent to oldest [Reference Range]: 1 Temperature Oral [35.8-37.3 degC] 36.5 degC (01/27/16 11:23 AM) Peripheral Pulse Rate [60-100 bpm] 68 bpm (01/27/16 11:23 AM) Respiratory Rate [14-20 br/min] 18 br/min (01/27/16 11:23 AM) Blood Pressure [90-140/60-90 mmHg] 122/88 mmHg (01/27/16 11:23 AM) Problem List Condition Effective Dates Status [...] days, # 90 tabs, 1 Refill(s), Pharmacy: [facility], 1 tabs Oral Daily,x90 [...] # 90 tabs, 2 Refill(s ), eRx: [facility], TAKE 1 TABLET ONE TIME DAILY AT BEDTIME Start Date: 06/11/15 Status: Ordered Results Hematology Most recent to oldest [Reference Range]: 1 WBC [4.8-10.8 10*3/uL] 7.4 10*3/uL (01/27/16 11:42 AM) RBC [4.00-5.20] 4.43 (01/27/16 11:42 AM) Hgb [12.0-16.0 gm/dL] 13.7 gm/dL (01/27/16 11:42 AM) Hct [37.0-47.0 %] 42.1 % (01/27/16 11:42 AM) MCV [82.0-99.0 fL] 95.0 fL (01/27/16 11:42 AM) MCH [27.0-32.0 pg] 30.9 pg (01/27/16:42 AM) MCHC [32.0-36.0 gm/dL] 32.5 gm/dL (01/27/16 11:42 AM) RDW [11.5-14.5 %] 13.1 % (01/27/16 11:42 AM) Platelet [150-400 10*3/uL] 310 10*3/uL (01/27/16 11:42 AM) MPV [8.8-14.8 fL] 10.4 fL (01/27/16 11:42 AM) Immature Granulocytes [0.0-1.0 %] 0.1 % (01/27/16 11:42 AM) Neutrophils [51-75 %] 61 % (01/27/16 11:42 AM) Lymphocytes [20-46 %] 28 % (01/27/16 11:42 AM) Monocytes [4-11 %] 9 % (01/27/16 11:42 AM) Eosinophils [0-4 %] 1 % (01/27/16 11:42 AM) Basophils [0-2 %] 0 % (01/27/16 11:42 AM) Neutro Absolute [1.90-7.00 10*3] 4.46 10*3 (01/27/16 11:42 AM) Lymph Absolute [0.80-3.30 10*3] 2.06 10*3 (01/27/16 11:42 AM) [place] Absolute [0.30-1.00 10*3] 0.69 10*3 (01/27/16 11:42 AM) Eos Absolute [0.00-0.50 10*3] 0.10 10*3 (01/27/16 11:42 AM) Baso Absolute [0.00-0.20 10*3] 0.03 10*3 (01/27/16 11:42 AM) Chemistry Most recent to oldest [Reference Range]: 1 Sodium Lvl [135-144 mEq/L] 142 mEq/L (01/27/16 11:42 AM) Potassium Lvl [3.5-5.2 mEq/L] 4.6 mEq/L (01/27/16 11:42 AM) Chloride [99-111 mEq/L] 109 mEq/L (01/27/16 11:42 AM) CO2 [22-31 mEq/L] 27 mEq/L (01/27/16 11:42 AM) AGAP [3-20] 6 (01/27/16 11:42 AM) BUN [10-20 mg/dL] 20 mg/dL (01/27/16 11:42 AM) Glucose Lvl [70-99 mg/dL] 95 mg/dL (01/27/16 11:42 AM) Creatinine Lvl [0.57-1.11 mg/dL] 0.81 mg/dL (01/27/16 11:42 AM) eGFR [>60 mL/min] >60 mL/min 1 (01/27/16 11:42 AM) Calcium Lvl [8.9-10.5 mg/dL] 10.8 mg/dL *HI* (01/27/16 11:42 AM) Albumin Lvl [3.4-4.8 gm/dL] 4.2 gm/dL (01/27/16 11:42 AM) Total Protein [6.2-8.1 gm/dL] 6.7 gm/dL (01/27/16 11:42 AM) Globulin [1.8-4.0 gm/dL] 2.5 gm/dL (01/27/16 11:42 AM) ALT [0-55 U/L] 13 U/L (01/27/16 11:42 AM) AST [5-34 U/L] 24 U/L 2 (01/27/16 11:42 AM) Alk Phos [40-150 U/L] 85 U/L (01/27/16 11:42 AM) Bili Total [0.2-1.2 mg/dL] 0.6 mg/dL (01/27/16 11:42 AM) 1Result Comment: Multiply eGFR results by 1.21 for race.2Result Comment: Specimen slighly hemolyzed. LDH, AST and Direct Bilirubin may be affected. Immunizations Vaccine Date Refusal Reason influenza virus vaccine, live 06/24/09 pneumococcal 23-polyvalent vaccine 06/24/09 Procedures Procedure Date Related Diagnosis Body Site Pacemaker1 2010 [facility] Social History Social History Type Response Smoking Status Never smoker Assessment and Plan Extracted from: Title: General Complaint * Author: Tyson Chen DO Date: 01/27/16 Impression and Plan Diagnosis Preoperative clearance ([id number] Z01.818, Discharge, Medical). Plan: EKG- had at cardio last week lab - fax to dr vargas -- disc post op care f/u as needed .
--- OUTSIDE RECORDS SUMMARY | 2017-07-15 06:46 | External Medical Summary ---
[...] Medications Results No Known Results Summary Purpose [employer]spot[employer] Submission
--- OUTSIDE RECORDS SUMMARY | 2017-07-15 06:46 | External Medical Summary | Referral Summary ---
:1939 Author Care Team Providers Name Role Phone Tyson Chen Primary Care Physician Encounter [facility] [id number] Date(s): 01/30/15 - 01/30/15 [facility], [address] [place] [address] Medicine [address] [address] [facility] Discharge Diagnosis: Visit for suture removal Discharge Disposition: Home or Self Care Attending Physician: Jamir Encarnacion Jr Admitting Physician: Jamir Encarnacion Jr Vital Signs Most recent to oldest [Reference Range]: 1 Temperature Oral [35.8-37.3 degC] 36.5 degC (01/30/15 2:26 PM) Peripheral Pulse Rate [60-100 bpm] 56 bpm *LOW* (01/30/15 2:26 PM) Respiratory Rate [14-20 br/min] 12 br/min *LOW* (01/30/15 2:26 PM) Blood Pressure [90-140/60-90 mmHg] 140/84 mmHg (01/30/15 2:26 PM) Problem List Condition Effective Dates Status [...] days, # 90 tabs, 3 Refill(s), Pharmacy: [facility] , 1 tabs Oral Daily,x90 days [...] TIME DAILY AT BEDTIME, # 90 tabs, 1 Refill(s ), eRx: [facility], TAKE 1 TABLET ONE TIME DAILY AT BEDTIME Special Instructions: TAKE 1 TABLET ONE TIME DAILY AT BEDTIME Start Date: 01/22/15 Status: Ordered Results No data available for this section Immunizations Vaccine Date Refusal Reason influenza virus vaccine, live 06/24/09 pneumococcal 23-polyvalent vaccine 06/24/09 Procedures Procedure Date Related Diagnosis Body Site Pacemaker1 2010 Mastectomy Total hip replacement 1See [facility] Social History Social History Type Response Smoking Status Never smoker Assessment and Plan Extracted from: Title: General Exam * Author: Jamir Encarnacion Jr Date: 01/30/15 Impression and Plan Diagnosis Visit for suture removal (ICD9 V58.32, Discharge, Medical). Plan: 5 nylon sutures removed from distal end of left index finger. Recommend keeping wound clean and dry continue with topical antibiotic and cover it for the next 5-7 days if changes need to return to clinic..
--- OUTSIDE RECORDS SUMMARY | 2017-07-15 06:46 | External Medical Summary ---
:1940 Author Organization eClinicalWorks Care Team Providers Name Role Phone GriseldajeannetimboThao Provider Role Unavailable Allergies No Known Allergies Problems Problem Type Condition Code Onset Dates Condition Status Problem Hypertension I10 Active Problem Congestive heart failure I50.9 Active Problem Hyperlipidemia E78.5 Active Problem Carotid disease, bilateral I77.9 Active Problem Cardiomegaly I51.7 Active Problem Bradycardia, unspecified R00.1 Active Problem Diastolic CHF I50.30 Active Problem Cerebrovascular disease I67.9 Active Problem Syncope and collapse R55 Active Problem Atrial septal defect Q21.1 Active Assessment CHF, Diastolic Heart Failure, 428.30 Active Unspecified Problem Chronic anticoagulation Z79.01 Active Assessment Hypertension 401.9 Active Problem PFO (patent foramen ovale) Q21.1 Active Problem Esophageal reflux K21.9 Active Problem High risk medication use Z79.899 Active Problem Atrial fibrillation I48.91 Active Problem Presence of cardiac pacemaker Z95.0 Active Problem Tricuspid valve disorders, 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 89495-075 5 MG Orally Once Oct 19, 1 tablet 0-41 a day 2014 [place] [address] 40 MG Orally Oct 19, 0.5 tablet 9-25 every other day 2014 Results No Known Results Summary Purpose eClinicalWorks Submission
--- OUTSIDE RECORDS SUMMARY | 2017-07-15 06:46 | External Medical Summary ---
:1940 Author Organization eClinicalWorks Care Team Providers Name Role Phone Kimmy De La Rosalpa Provider Role Unavailable Allergies, Adverse Reactions, Alerts Substance Reaction Event Type N.K.D.A. Info Not Available Non Drug Allergy Problems Problem Type Condition ICD-9 Code Onset Dates Condition Status Problem Syncope 780.2 Active Assessment Chronic Anticoagulation V58.61 Active Problem Cardiomegaly 429.3 Active Assessment High Risk Med V58.69 Active Problem Congestive Heart Failure, 428.0 Active Unspecified Problem Atrial fibrillation 427.31 Active Problem Sinus Bradycardia 427.89 Active Problem Chronic Anticoagulation V58.61 Active Problem PFO 745.5 Active Assessment Esophageal reflux 530.81 Active Assessment PFO 745.5 Active Problem High Risk Med V58.69 Active Assessment S/P Pacemaker Placement - Dual V45.01 Active Problem Hypertension 401.9 Active Problem Tricuspid valve disorders, 424.2 Active specified as nonrheumatic Problem S/P Pacemaker Placement - Dual V45.01 Active Problem Hyperlipidemia 272.4 Active Assessment Hypertension 401.9 Active Assessment Hyperlipidemia 272.4 Active Assessment Atrial fibrillation 427.31 Active Assessment Tricuspid valve disorders, 424.2 Active specified as nonrheumatic Problem CHF, Diastolic Heart Failure, 428.30 Active Unspecified Problem Atrial Septal Defect 745.5 Active Assessment Congestive Heart Failure, 428.0 Active Unspecified Problem Esophageal reflux 530.81 Active Medications Medication Code Code Instructions Start End Status Dosage System Date Date Metoclopramide HCl [facility] 25142-18 5 MG Orally qid 1 tablet 04-01 Sotalol HCl [facility] 06362-94 80 MG Orally 1 tablet 61-01 Twice a day Pantoprazole [facility] 90470-71 40 MG Orally 1 tablet Sodium 07-01 Once a day Percocet [facility] 94661-98 5-325 MG Orally 1 tablet as 19-30 every 6 hrs needed Aspirin [facility] 35405-61 81 MG Orally 1 tablet - Once a day Lisinopril [facility] 05848-19 20 MG Orally January 1 tablet 68- twice a day 2013 Calcium + D3 [facility] 66706-98 600-200 MG-UNIT not defined 56-52 Orally Warfarin Sodium [facility] 93878-21 6 MG Orally February 05, 1 tablet 03-04 alternating with 2013 4mg Cephalexin [facility] 62836-82 500 MG Orally 1 capsule Three times a day Norvasc [facility] 95350-44 2.5 MG Orally February 05, 1 tablet - Once a day 2013 Cetirizine HCl [facility] 05945-24 10 MG Orally 1 tablet 98-55 Once a day Zofran [facility] 75849-60 4 MG Orally prn 1 tablet Ranitidine NDC 0 150 MG Orally qd 1 tablet Coumadin [facility] 39153-22 4 MG Orally Once 1 tablet or - a day as directed Furosemide [facility] 79570-17 40 MG Orally qod January 0.5 tablet -2014 Simvastatin [facility] 96668-29 20 MG Orally 1 tablet in 54-10 Once a day the evening Procedures Procedure Coding System Code Date Office Visit, Est Pt., Level 4 CPT-4 51229 May 08, 2015 Vital Signs Date/Time: May 08, 2015 BMI 27.97 Index Weight 184 lbs Height 5 ft 8 in in Cardiac Monitoring Heart Rate 60 /min Oximetry 95 % Blood Pressure Diastolic 80 mm Hg Blood Pressure Systolic 124 mm Hg Results No Known Results Summary Purpose eClinicalWorks Submission
--- OUTSIDE RECORDS SUMMARY | 2017-07-15 06:46 | External Medical Summary ---
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 Problem Atrial fibrillation I48.91 Active Problem Chronic Anticoagulation V58.61 Active Problem PFO 745.5 Active Problem Cardiomegaly 429.3 Active Problem Syncope 780.2 Active Problem High Risk Med V58.69 Active Problem Atrial Septal Defect 745.5 Active Problem Hyperlipidemia E78.5 Active Problem Hypertension I10 Active Problem S/P Pacemaker Placement - Dual V45.01 Active Problem Congestive heart failure I50.9 Active Problem Atrial fibrillation 427.31 Active Problem Tricuspid valve disorders, 424.2 Active specified as nonrheumatic Problem Congestive Heart Failure, 428.0 Active Unspecified Problem Sinus Bradycardia 427.89 Active Problem Chronic anticoagulation Z79.01 Active Problem High risk medication use Z79.899 Active Problem Hypertension 401.9 Active Problem Hyperlipidemia 272.4 Active Medications No Known Medications Results No Known Results Summary Purpose eClinicalWorks Submission
--- OUTSIDE RECORDS SUMMARY | 2017-07-15 06:46 | External Medical Summary ---
[...] Status Dosage System Date Date Furosemide [place]DC 41109-28 40 MG Orally 1/2 tablet 99-25 everyother day Allergy Relief NDC 29006-20 10 MG Orally 1 tablet 12-39 Once a day Ranitidine & NDC 0 150 MG Orally 1 tablet Diet Manage Prod [place] [address]-72 5 MG Orally 4X's 1 tablet 04-01 daily with meals & at bedtime Sotalol HCl NDC 58198-10 80 MG Orally 1 tablet 61-01 [place] [address]-53 Orally not Triple Strength 120 defined [place] + [place] [address]-74 600-200 MG-UNIT not 56-52 Orally defined Pantoprazole NDC 33195-94 40 MG Orally 1 tablet Sodium 07-01 Once a day Amlodipine NDC 83824-52 5 MG Orally Once 1 tablet Besylate 01-20 a day Aspirin Adult Low NDC 88835-85 81 MG Orally 1 tablet Strength 77-48 Once a day Simvastatin NDC 28651-93 20 MG Orally 1 tablet 54-10 Once [place] the [place] [address]-90 20 MG Orally 1 tablet 68-01 [place] [address]-08 4 MG Orally Once 1 tablet 04-01 a day Procedures Procedure Coding System Code Date Office Visit, New Pt., Level 4 CPT-4 14958 February 19, 2015 Vital Signs Date/Time: February 19, 2015 Blood Pressure Systolic 140 mm Hg Weight 190.6 lbs Height 67 in BMI 29.85 Index Respiratory Rate 16 /min Cardiac Monitoring Heart Rate 60 /min Blood Pressure Diastolic 90 mm Hg Results No Known Results Summary Purpose eClinicalWorks Submission
--- OUTSIDE RECORDS SUMMARY | 2017-07-15 06:47 | External Medical Summary ---
:1940 Author Organization eClinicalWorks Care Team Providers Name Role Phone Valarie Gil Provider Role Unavailable Allergies No Known Allergies Problems Problem Type Condition ICD-9 Code Onset Dates Condition Status Problem Pancreas inflammation 577.0 Active Problem GERD (gastroesophageal reflux 530.81 Active disease) Medications No Known Medications Results No Known Results Summary Purpose eClinicalWorks Submission
--- OUTSIDE RECORDS SUMMARY | 2017-07-15 06:47 | External Medical Summary | Continuity of Care Document ---
:1940 Author Organization [facility] Allergies Active Description Code Type Severity Reaction Onset Reported/ Identified Relationship Clinical to Patient Status Yes No Known No Drug Unknown N/A 06/01/2008 Contrast Known Aller Allergies Contr gy ast Aller gies Yes No Known No Drug Unknown N/A 06/01/2008 Drug Known Aller Allergies Drug gy Aller gies Yes No Known No Drug Unknown N/A 06/01/2008 Drug Known Aller Intolerances Drug gy Intol eranc es Yes No Known No Drug Unknown N/A 06/01/2008 Food Known Aller Allergies Food gy Aller gies Yes NO KNOWN NO Drug Unknown N/A 06/01/2008 LATEX KNOWN Aller ALLERGY/SENS LATEX gy ITI ALLER GY/SE NSITI Yes No Known Drug N/A N/A 04/26/2012 Drug Aller Allergies gy Yes No Known Food N/A N/A 04/26/2012 Food Aller Allergies gy Yes Tape Misce N/A Adverse 04/26/2012 llane Reaction ous Aller gy Yes No Known No Drug Unknown . 02/28/2015 Drug Known Aller Intolerances Drug gy Intol eranc es Medications Problems Date Dx Attending Type Code Diagnosis Diagnosed By Coded 01/05/2014 Gustavo NULL, Final 724.2 LUMBAGO Tyson B 01/05/2014 Gustavo NULL, Final 724.4 LUMBOSACRAL Tyson B NEURITIS NOS 01/05/2014 Gustavo NULL, Final V45.01 CARD PACEMAKER IN Tyson B SITU 01/05/2014 Gustavo NULL, Admitting 724.2 LUMBAGO Tyson B 01/05/2014 Gustavo NULL, Admitting 356.9 IDIO PERIPH Tyson B NEUROPAT NOS Procedures Code Description Performed By Performed On Sandie CROOKS, 03/01/2015 45.16 ESOPHAGOGASTRODUODENOSCOPY [EGD] Jamir Stephenson/CLOSED BIOPSY DX Sandie CROOKS, 03/01/2015 88.74 ULTRASOUND-DIGESTIVE Jamir Lambert Results Test Result Range CBC - 03/01/15 11:32 MEAN CELL HGB 31.6 pg 27.0-33.0 MEAN CELL HGB CONCENTRATION 33.7 g/dL 32.0-37.0 MEAN CELL VOLUME 93.9 fl 80.0-100.0 RED BLOOD CELL 4.24 m/cumm 4.00-6.00 RED CELL DISTRIBUTION WIDTH 12.6 % 11.0-15.6 WHITE BLOOD CELL 5.8 k/cumm 5.0-10.0 HEMOGLOBIN 13.4 gm/dL 12.0-16.0 HEMATOCRIT 39.8 % 37.0-47.0 PLATELET COUNT 304 k/cumm 150-400 POTASSIUM - 03/01/15 11:32 POTASSIUM 4.2 mmol/L 3.5-5.3 PROTHROMBIN TIME WITH INR - 03/01/15 11:32 INTERNATIONAL NORMAL RATIO 1.0 0.9-1.1 PROTHROMBIN TIME 11.1 sec 9.3-12.2 Encounters ACCT No. Visit Discharge Status Pt. Type Provider Facility Loc./Unit Complaint Date/Time [id number] 01/05/2014 01/05/2014 CLS Outpatient Gustavo PENN 7 08:42:00 23:59:59 [facility] [id number] 01/01/2014 01/01/2014 CLS Outpatient 10:26:00 23:59:59 [id number] 03/01/2015 03/01/2015 DIS Outpatient Sandie GARCIA 39 11:02:00 14:53:00 , [facility]
[2017-07-15 06:58] VITALS: BMI 29.4
[2017-07-15] MEDS ORDERED: VANCOMYCIN 1,000 MG INJECTION ONE (07:01)
[2017-07-15] MEDS ORDERED: CEFAZOLIN 1 G INJECTION IVP ONE (07:11)
[2017-07-15] MEDS: LR 1,000 ML IV SCH ×2 (07:40→09:48)
[2017-07-15] MEDS ORDERED: EPINEPHrine 0.25 MG, BUPIVACAINE 0.25% PF 30 ML, MORPHINE SULFATE 15 MG, KETOROLAC INJ ... OPSITE ONE (08:00)
--- NOTE | 2017-07-15 08:10 | Anesthesia Preoperative Report ---
Anesthesia Preoperative Record - Date and Time Date: 07/15/17 Preoperative Diagnosis: Lt TKA (RA) M17.12 osteoarthritis Proposed Procedure: left total knee NPO Since Date: 07/14/17 NPO Since Time: 23:00 Allergies/Adverse Reactions: Allergies Allergy/AdvReac Type Severity Reaction Status Date / Time budesonide Allergy Unknown Hives Verified 07/15/17 07:16 - Vital Signs Vital Signs: Temperature 97.5 F 07/15/17 06:58 Pulse Rate 60 07/15/17 07:36 Respiratory Rate 18 07/15/17 06:58 Blood Pressure 145/81 H 07/15/17 06:58 Pulse Oximetry 92 07/15/17 06:58 Height and Weight: Height 1.7 m Weight 85.3 kg Body Mass Index 29.4 - Medications Inpatient Medications: Current Medications Tranexamic Acid 1,000 mg/ (Sodium Chloride) 110 mls @ 0 mls/hr TOP INTRAOP ONE PRN Reason: As Directed Stop: 07/15/17 16:26 Lactated Ringer's (Lactated Ringers) 1,000 mls @ 50 mls/hr IV .Q20H NIKKIE Last Admin: 07/15/17 07:40 Dose: 50 mls/hr Sodium Chloride (Iv Flush) 10 - 80 ml IV PRN PRN PRN Reason: Flushing Home Medications: Home Medications Medication Instructions Recorded Confirmed Type Amlodipine Besylate 5 mg PO DAILY #0 01/19/15 07/15/17 History Aspirin [Aspir 81] 81 mg PO DAILY #0 01/19/15 07/15/17 History Cetirizine HCl [Zyrtec] 10 mg PO DAILY #0 01/19/15 07/15/17 History Furosemide 20 mg PO QOD #0 01/19/15 07/15/17 History Simvastatin 20 mg PO HS #0 01/19/15 07/15/17 History raNITIdine HCl [Ranitidine HCl] 150 mg PO HS #0 01/19/15 07/15/17 History Calcium Carbonate/Vitamin D3 1 tab PO BID #0 02/11/16 07/15/17 History [Calcium 600-Vit D3 200 Tablet] Lisinopril 20 mg PO BID #0 02/11/16 07/15/17 History Warfarin Sodium 4 mg PO DAILY #0 02/11/16 07/14/17 History Gabapentin [Gabapentin] 300 mg PO HS 05/03/17 07/15/17 History Mirabegron [Myrbetriq] 25 mg PO HS 05/03/17 07/15/17 History Protonix (Pantoprazole)40 mg 40 mg PO DAILY 90 Days 05/03/17 07/15/17 History tablet,delayed release glucosamine-chondroitin 250 mg-200 1 tab PO BID tab 05/03/17 07/15/17 History mg tablet sotalol 80 mg tablet 80 mg PO BID #0 tab 05/03/17 07/15/17 History Enoxaparin [Lovenox] 80 mg SQ BID 07/14/17 07/15/17 History Is Patient on Beta Natasha?: Yes Beta Natasha Last Dose Date/Time: 050 - Medical History Respiratory: Reports: Pulmonary Edema (2007 after hip surgery ) Cardiovascular: Reports: Hypertension Neuro/Musculoskeletal: Reports: Other (TIA 2010, poor speech, left sided weakness, ) - Surgical History Cardiac Surgeries/Treatments: Reports: Pacemaker ([facility]-see notes, 2010) GI Surgery/Treatments: Reports: Colonoscopy (2004, 2009) Musculoskeletal Surgery/Tx: Reports: Total Hip Replacement (left) Reproductive Surgery/Treatment: Reports: Mastectomy (right; right breast reconstruction) Anesthesia Reactions: Nausea and Vomiting Hx Family Anesthesia Reaction: No History of Motion Sickness: No - Social History Smoking Status: Never smoker - Pertinent Findings Laboratory: CBC and BMP 07/15/17 07:34 Paced: 100% - Physical Exam Respiratory Exam: Present: lungs clear, bilateral breath sounds equal Cardiovascular Exam: Present: regular rate and rhythm, no murmur - Airway Assessment Mallampati Score: III TMD: 2 Fingerbreadths Neck Extension: fair Overall Assessment: may be difficult intubation - ASA ASA Score: 3 - Plan Anesthesia: General Inhalation Gases Regional/Trunk Block: Spinal Peripheral Nerve Block: Saphenous-Left - Discussion Discussion: Discussed risks/options/alternatives of anesthesia and questions answered. Patient consents. Nursing pain assessment noted. Attestation Statement: Prior to the delivery of any anesthetic medication, I examined the patient, developed the plan, obtained the patient's consent and discussed the risk and benefits of the procedure with the patient/guardian.
[2017-07-15] MEDS ORDERED: FentaNYL 100 MCG/2 ML INJECTION ONE (08:28)
[2017-07-15] MEDS ORDERED: MIDAZOLAM 2mg/2ml INJECTION ONE (08:28)
[2017-07-15] MEDS ORDERED: PROPOFOL 20 ML ONE (08:28)
[2017-07-15] MEDS ORDERED: KETAMINE 500 MG/10 ML INJECTION ONE (08:28)
[2017-07-15] MEDS ORDERED: EPHEDRINE 50mg/ml INJECTION ONE (09:15)
[2017-07-15] MEDS ORDERED: VANCOMYCIN 1,000 MG INJECTION IAR ONE (09:34)
[2017-07-15] MEDS ORDERED: ROPIVACAINE 0.5% (5mg/ml) 30ml INJ ONE (10:45)
--- NOTE | 2017-07-15 10:46 | Operative Note ---
- Procedure Preoperative Diagnosis: Left knee primary degenerative joint disease Postoperative Diagnosis: Same as preoperative diagnosis. Surgeon: Abdoulaye King MD Lining Stuffer: Morris Long Complications: None. Anesthesia: Spinal. Estimated Blood Loss: See Anesthesia Record. Fluids: Please see Anesthesia Record. Description of Procedure: Mrs. Lazo and her left knee were identified and marked in the preoperative holding area. She was brought back to the operating suite after a saphenous nerve block was placed in the preoperative holding area. Spinal anesthetic was administered and she was placed supine on the operating table. The left lower extremity was prepped and draped in my normal sterile fashion. Timeout was performed. The [employer] robot was used during the surgery. A standard anterior midline incision followed by medial parapatellar arthrotomy was performed. Anterior fat pad and meniscus were removed. The patella was resurfaced to a size 32. Tibial and femoral arrays were placed both within the original incision. Checkpoints were then placed both in the femur and the tibia. The bone was then registered with the [employer] robot. Osteophytes were removed and gaps were captured both 90 and 0 with correction. The knee was balanced using the [employer] software. She was hyperextended so we plan for 17 mm gaps in extension and 18 mm gaps in flexion. The [employer] robotic arm was then used to assist with the bone cuts. Posterior osteophytes and remaining meniscus were removed. Trial components were placed. We used a 4 femur and a 3 tibia with a 11 mm spacer. She tracked well and was well balanced throughout range of motion. The leg was exsanguinated and the tourniquet inflated to 250 mmHg. The bone was prepared for cementing and components were cemented into place and allowed to cure in extension. The tourniquet was let down and hemostasis obtained with electrocautery. The knee was ranged one more time to ensure good stability, balance and patellar tracking. 1 g of TXA was allowed to sit in the wound for 5 minutes and then suctioned out. 1 g of vancomycin powder was then placed into the knee joint. The capsulotomy was then closed with #1 Vicryl. I then left my public health training assistant to close the subcutaneous tissue with 2-0 Vicryl. Running 4-0 Monocryl will be used in the subcuticular layer. Dermabond will be used on the skin followed by sterile dressing. After drapes are removed patient will be taken to recovery room under the care of anesthesia.
[2017-07-15] MEDS ORDERED: WARFARIN - PHARMACY CONSULT MC ONE (12:13)
[2017-07-15] MEDS ORDERED: DiphenhydrAMINE 25 MG CAPSULE PO PRN (12:13)
[2017-07-15] MEDS ORDERED: ONDANSETRON 4 MG/2 ML INJECTION IVP PRN (12:13)
[2017-07-15] MEDS ORDERED: SOTALOL 80 MG TABLET PO SCH (12:13)
[2017-07-15] MEDS ORDERED: DiphenhydrAMINE 50 MG/ML INJECTION IVP PRN (12:13)
[2017-07-15] MEDS ORDERED: ASPIRIN *EC* 81 MG TABLET PO SCH (12:13)
[2017-07-15] MEDS ORDERED: PANTOPRAZOLE 40 MG TABLET PO SCH (12:13)
[2017-07-15] MEDS ORDERED: AMLODIPINE 5 MG TABLET PO SCH (12:13)
[2017-07-15] MEDS ORDERED: LORazepam 1 MG TABLET PO PRN (12:13)
[2017-07-15] MEDS: ACETAMINOPHEN 325 MG TABLET PO SCH ×4 (12:24→20:29)
[2017-07-15] MEDS: NS 1,000 ML IV SCH (12:25)
[2017-07-15] MEDS: DOCUSATE SODIUM 100 MG CAPSULE PO SCH ×2 (12:28→20:29)
[2017-07-15] MEDS: POLYETHYL GLYCOL 3350 17gm PACKET PO SCH (12:28)
--- NOTE | 2017-07-15 12:35 | Anesthesia Procedure Note ---
Peripheral Nerve Blockade - Procedure Physician: Mike King MD Date: 07/15/17 Surgical Procedure: left total knee Discussion: Discussed risks/options/alternatives of anesthesia and questions answered. Patient consents. Nursing pain assessment noted. Block Start: 11:22 Block Stop: 11:24 Blocked Employed: Adductor Canal Indication: Post-Operative Pain Approach: Left Side Confirmed Position: Supine Patient: Consent, Risks/Benefits Discussed, Informed, Post Block Act. Discussed IV Sedation: No Initial Vital Signs: Temperature 97.5 F 07/15/17 06:58 Temperature Source Oral 07/15/17 06:58 Pulse Rate 61 07/15/17 06:58 Respiratory Rate 18 07/15/17 06:58 Blood Pressure 145/81 H 07/15/17 06:58 Blood Pressure Mean 102 07/15/17 06:58 Blood Pressure Position Sitting 07/15/17 06:58 Pulse Oximetry 92 07/15/17 06:58 Oxygen Delivery Method 07/15/17 06:58 Post Vital Signs: Temperature 97.6 F 07/15/17 12:15 Pulse Rate 60 07/15/17 12:29 Respiratory Rate 16 07/15/17 12:15 Blood Pressure 133/78 07/15/17 12:29 Pulse Oximetry 96 07/15/17 12:29 Initial Pain Pain Score: 0 Post Block Pain Score: 0 Prep: Chlorhexadine/ETOH Ultrasound Used?: Yes - Injectate Ropivacaine (%): 0.5 Ropivacaine (mL): 20 Was Epi 1:200,000 Used?: No Injection: Injection made incrementally with constant monitoring and aspiration every ml
--- NOTE | 2017-07-15 12:39 | Anesthesia Postoperative Note ---
- Date and Time Date: 07/15/17 Time: 12:00 - Status Patient Participated in Evaluation: Patient Participated in Person Vital Signs: Temperature 97.6 F 07/15/17 12:15 Pulse Rate 60 07/15/17 12:29 Respiratory Rate 16 07/15/17 12:15 Blood Pressure 133/78 07/15/17 12:29 Pulse Oximetry 96 07/15/17 12:29 Respiratory Function: Airway Patent Cardiovascular Function: Regular Pulse EKG: Sinus Rhythm Mental Status: Alert and Oriented Pain Intensity: 0 Hydration: IV Infusing Complications During Recover: None Apparent - Follow-Up Instructions Instructions: Per Surgeon
[2017-07-15] MEDS: FUROSEMIDE 40 MG TABLET PO SCH (13:14)
[2017-07-15] MEDS: LISINOPRIL 20 MG TABLET PO SCH ×2 (13:14→20:28)
[2017-07-15] MEDS: CETIRIZINE 10 MG TABLET PO SCH (13:14)
--- NOTE | 2017-07-15 13:18 | XRay Report ---
Indication: postoperative image PROCEDURE: XR knee LT 2V: Encounter: Initial Comparison: May 03, 2017 Findings: Postoperative changes of left total knee replacement are seen. There is expected postoperative subcutaneous gas. No evidence of hardware failure or acute fracture. No retained radiopaque surgical instruments or sponges. Overlying material causing artifact. Impression: New left total knee prosthesis without evidence of immediate complication. .
[2017-07-15] MEDS: TRAMADOL 50 MG TABLET PO PRN ×3 (13:25→20:29)
[2017-07-15] MEDS ORDERED: WARFARIN 4 MG TABLET PO ONE (13:56)
--- NOTE | 2017-07-15 14:06 | Pharmacy Consult ---
Pharmacy Consult-Warfarin - Laboratory Information 07/15/17 07:34 INR 1.10 - Consult Information COUMADIN CONSULT (Initial): Dx: History of embolism Baseline INR = 1.10. Will give Warfarin 4mg today (home dose). Thank you.
[2017-07-15] MEDS: NOZIN NASAL SWAB NAS SCH ×3 (14:40→23:19)
[2017-07-15] MEDS ORDERED: TRANEXAMIC ACID 1,000 MG in NS 100 ML TOP ONE (16:25)
[2017-07-15] MEDS ORDERED: SALINE FLUSH 10ml SYRINGE IV PRN (16:25)
[2017-07-15] MEDS: CEFAZOLIN 2 G in NS 100 ML IV SCH (17:08)
[2017-07-15] MEDS: SENNOSIDES 8.6 MG TABLET PO SCH (20:28)
[2017-07-15] MEDS: SIMVASTATIN 20 MG TABLET PO SCH (20:28)
[2017-07-15] MEDS: RANITIDINE 150 MG TABLET PO SCH (20:28)
[2017-07-15] MEDS: ASPIRIN *EC* 81 MG TABLET PO SCH (20:29)
[2017-07-15] MEDS: SOTALOL 80 MG TABLET PO SCH (20:30)
[2017-07-15] MEDS: MIRABEGRON 25mg TABLET PO SCH (20:30)
[2017-07-15] MEDS: ENOXAPARIN 80 MG/0.8 ML INJECTION SQ SCH (20:30)
[2017-07-15] MEDS: GABAPENTIN 300 MG CAPSULE PO SCH (21:55)
[2017-07-16] MEDS: CEFAZOLIN 2 G in NS 100 ML IV SCH (00:36)
[2017-07-16] MEDS: NS 1,000 ML IV SCH ×4 (03:46→20:48)
[2017-07-16] MEDS: TRAMADOL 50 MG TABLET PO PRN ×3 (03:46→21:24)
[2017-07-16] MEDS: PANTOPRAZOLE 40 MG TABLET PO SCH (05:54)
[2017-07-16] MEDS: SOTALOL 80 MG TABLET PO SCH ×2 (05:54→21:22)
[2017-07-16] MEDS: NOZIN NASAL SWAB NAS SCH ×3 (05:55→21:23)
[2017-07-16] MEDS ORDERED: SENNOSIDES 8.6 MG TABLET PO PRN (07:17)
--- NOTE | 2017-07-16 07:58 | Pharmacy Consult ---
Pharmacy Consult-Warfarin - Laboratory Information 07/15/17 07/16/17 07:34 03:59 INR 1.10 1.14 COUMADIN CONSULT: LL is a 77 yo female admitted for Left Total Knee Arthroplasty. The patient was on Warfarin 4 mg po daily before surgery. The patient has a history of atrial fibrillation, Pulmonary Embolism, and TIA. The warfarin was stopped before surgery. Date INR Dose 07/15 1.10 4 mg 07/16 1.14 Plan 4 mg The INR is subtherapeutic today, but I am using the patient's home dose of 4 mg. The Pharmacy will continue to monitor the INR's and adjust the dosage of the Coumadin accordingly. Thanks for the Warfarin Dosing Protocol, Chepe Johnson, Pharmacist
--- NOTE | 2017-07-16 08:40 | Orthopedic Progress Note ---
Date: Subjective/Severity of Illness: Araseli is feeling good. Her BPs were a little low this AM and meds were held. Pressures seem to be a little better now. Denies CP or SOA. No cough. Resumed her Lovenox and Coumadin. Has a hx of DVT and PE in the past. Pain in the knee is controlled so far. She has been up several times with good tolerance. Orthopedic Objective PO Vital signs: Temperature 97.6 F 07/16/17 07:42 Pulse Rate 62 07/16/17 07:42 Respiratory Rate 16 07/16/17 07:42 Blood Pressure 110/69 07/16/17 07:42 Pulse Oximetry 92 07/16/17 07:42 Height and Weight: Height 5 ft 7 in Weight 197 lb 12.074 oz Body Mass Index 29.4 - Constitutional General Appearance: Present: alert, cooperative, no acute distress - Respiratory Exam Present: non-labored - Cardiovascular Exam Present: pedal pulses intact - Extremities Exam Extremities: Present: pulses intact. Absent: calf tenderness - Surgical Site Incision: Mepilex dressing intact, no drainage - Integumentary Exam Present: pink, warm, dry - Neurological Exam Present: intact to light touch, no deficits - Psychiatric Exam Present: alert, normal affect - Labs Result Diagrams: 07/16/17 03:59 07/16/17 03:59 Abnormal lab results 07/16/17 07/16/17 Range/Units 03:59 03:59 WBC 12.5 H D (4.5-11.0) T/MM3 RBC 3.30 L (4.00-5.20) M/MM3 Hgb 10.3 L D (12-16) GM/DL Hct 32.0 L D (36-46) % Chloride 109 H (98-107) MEQ/L BUN 18.0 H (7-17) MG/DL Glucose 119 H (65-110) MG/DL H & H 07/15/17 07/16/17 Range/Units 07:34 03:59 Hgb 12.9 10.3 L D (12-16) GM/DL Hct 39.6 32.0 L D (36-46) % Coagulation 07/15/17 07/16/17 Range/Units 07:34 03:59 INR 1.10 1.14 (0.99-1.21) Orthopedic Assessment and Plan (1) Primary osteoarthritis of left knee Status: Acute Assessment and Plan: Using Ultram for pain. Hold BP meds until pressures are better. Resume Lovenox 80mg Q 12hrs until INR >2.0 and pharmacy to adjust coumadin. SCDs for added coverage. Renal function good. Monitor BPs . PT / OT to work with her. - Anticoagulation Therapy Anticoagulation: Resume home anticoagulant Hospital Course Summary Disclaimer: The visit summary below is not to be considered part of the above Progress Note.
[2017-07-16] MEDS: ACETAMINOPHEN 325 MG TABLET PO SCH ×4 (08:57→21:23)
[2017-07-16] MEDS: CETIRIZINE 10 MG TABLET PO SCH (08:58)
[2017-07-16] MEDS: DOCUSATE SODIUM 100 MG CAPSULE PO SCH ×2 (08:58→21:24)
[2017-07-16] MEDS: POLYETHYL GLYCOL 3350 17gm PACKET PO SCH (08:58)
[2017-07-16] MEDS: ENOXAPARIN 80 MG/0.8 ML INJECTION SQ SCH ×2 (08:59→21:21)
[2017-07-16] MEDS ORDERED: WARFARIN 4 MG TABLET PO SCH (12:00)
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
[2017-07-16] MEDS ORDERED: HYDROCODONE/APAP 5mg/325mg TABLET PO ONE ×2 (17:59→18:15)
[2017-07-16] MEDS: MIRABEGRON 25mg TABLET PO SCH (21:21)
[2017-07-16] MEDS: SIMVASTATIN 20 MG TABLET PO SCH (21:21)
[2017-07-16] MEDS: RANITIDINE 150 MG TABLET PO SCH (21:23)
[2017-07-16] MEDS: SENNOSIDES 8.6 MG TABLET PO SCH (21:23)
[2017-07-16] MEDS: ASPIRIN *EC* 81 MG TABLET PO SCH (21:24)
[2017-07-16] MEDS: GABAPENTIN 300 MG CAPSULE PO SCH (21:24)
[2017-07-17] MEDS: TRAMADOL 50 MG TABLET PO PRN (04:36)
[2017-07-17] MEDS: NS 1,000 ML IV SCH ×2 (05:16→08:09)
[2017-07-17] MEDS: PANTOPRAZOLE 40 MG TABLET PO SCH (06:17)
[2017-07-17] MEDS: NOZIN NASAL SWAB NAS SCH ×2 (06:17→15:26)
[2017-07-17] MEDS: SOTALOL 80 MG TABLET PO SCH (06:18)
--- NOTE | 2017-07-17 07:43 | Pharmacy Consult ---
Pharmacy Consult-Warfarin - Laboratory Information 07/15/17 07/16/17 07/17/17 07:34 03:59 03:59 INR 1.10 1.14 1.28 H - Consult Information We will give warfarin 4mg p.o. today at noon. Goal INR of 2 to 3. Continue enoxaparin 80mg sq bid. Thanks
--- NOTE | 2017-07-17 09:44 | Discharge Summary ---
Orthopedic Discharge Info Date of admission: 07/15/17 06:37 Primary care physician: Tyson Chen Attending Physician: Mike King MD Consults: 07/15/17 07:03 Consult to Anesthesiology [CONS] Routine Consulting Provider: OLEG Hameed Reason For Exam: Preoperative Assessment 07/15/17 12:13 Case Management Consult [CONS] Routine Reason For Exam: Discharge Planning DME-Walker [CONS] Routine Height: 5 ft 7 in Weight: 188 lb 0.869 oz Comment: change dressing in 2 weeks Total Joint Outpatient Therapy [CONS] Routine Comment: change dressing in 2 weeks 07/16/17 12:18 Physician Consult [CONS] Routine Consulting Provider: Michelle Arce Reason For Exam: ORTHOSTATIC HYPOTENSION Ordering Provider has Notified Ed Transporter: Yes - Discharge Diagnosis (1) Primary osteoarthritis of left knee Status: Acute - Procedures Procedures: TKA - Laboratory Result Diagrams: 07/17/17 03:59 07/17/17 03:59 Laboratory: Abnormal lab results 07/17/17 07/17/17 07/17/17 Range/Units 03:59 03:59 03:59 RBC 2.79 L (4.00-5.20) M/MM3 Hgb 8.6 L D (12-16) GM/DL Hct 27.3 L D (36-46) % Neut % (Auto) 68.1 H (33-66) % Lymph % (Auto) 20.8 L (23-45) % [place] % (Auto) 10.1 H (0-9.0) % [place] # (Auto) 1.1 H (0-0.8) T/MM3 INR 1.28 H (0.99-1.21) Chloride 108 H (98-107) MEQ/L BUN 22.0 H (7-17) MG/DL BUN/Creatinine Ratio 28 H (6-26) RATIO H & H 07/15/17 07/16/17 07/17/17 Range/Units 07:34 03:59 03:59 Hgb 12.9 10.3 L D 8.6 L D (12-16) GM/DL Hct 39.6 32.0 L D 27.3 L D (36-46) % Coagulation 07/15/17 07/16/17 07/17/17 Range/Units 07:34 03:59 03:59 INR 1.10 1.14 1.28 H (0.99-1.21) Orthopedic Discharge HPI - HPI Comments Araseli complains of moderate left knee pain. It has been present for years and is described as dull. It is worse with weather changes, prolonged sitting or activity. She has pain at night that awakens her from sleep and cannot walk distances due to pain / weakness /deformity. She has tried Tylenol, steroid injections and rest. She cannot take nsaids due to being on Coumadin. She takes Coumadin for prevention of DVT and PE that she had in the past. Araseli is wanting to proceed with TKA. This patient was admitted for elective surgical tx of end stage degenerative joint disease that failed to respond to conservative treatment. Further details of this is found in the admission H&P. Orthopedic Hospital Course Hospital course: 07/17/17 10:33 After appropriate preoperative clearance and signing of operative consent, the patient was given IV antibiotics, according to orthopedic protocol. The patient was taken to the operating room and underwent elective joint arthroplasty. Following surgery, antibiotics were discontinued less than 24 hours according to joint protocol. Appropriate anticoagulants were initiated and SCDs added for DVT prevention. The dressing was clean, dry, and intact. Pain control was obtained via multimodal approach. Bowel motivation addressed with scheduled and PRN medications. Early mobilization was initiated through PT services. Discharge arrangements made by a collaborative effort between the patient and Case Management. Hospitalist service was consulted for hypertension. They adjusted meds prior to discharge; please see their notes for specifics. Follow-up is scheduled in 2-3 weeks. Discharge instructions given by orthopedic providers and nursing staff at discharge. Discharge condition was good. Discharge Plan - Med Rec/Dispo Referrals/Follow Up: Mike King MD [Physician] - 08/09/17 9:45 am Prashant Instructions: [facility] [place] Ortho Postop Instructions Additional Instructions: [facility] ON 07/19/2017 AT 8:30AM FOR PHYSICAL THERAPY ANIVAL. PLEASE COMPLETE THE PAPERWORK IN THE [facility] FOLDER PRIOR TO THE APPOINTMENT. PHONE [phone] Prescriptions: New Tramadol [Ultram] 50 - 100 mg PO Q6H PRN #60 tab PRN Reason: Pain Acetaminophen [Tylenol] 650 mg PO QID #100 tab Continue Warfarin Sodium 4 mg PO DAILY #0 Lisinopril 20 mg PO BID #0 Calcium Carbonate/Vitamin D3 [Calcium 600-Vit D3 200 Tablet] 1 tab PO BID #0 Gabapentin 300 mg PO HS Mirabegron [Myrbetriq] 25 mg PO HS Furosemide 20 mg PO QOD #0 Amlodipine Besylate 5 mg PO DAILY #0 Aspirin [Aspir 81] 81 mg PO DAILY #0 raNITIdine HCl [Ranitidine HCl] 150 mg PO HS #0 Simvastatin 20 mg PO HS #0 Cetirizine HCl [Zyrtec] 10 mg PO DAILY #0 Enoxaparin [Lovenox] 80 mg SQ BID #10 syringe sotalol 80 mg tablet 80 mg PO BID #0 tab glucosamine-chondroitin 250 mg-200 mg tablet 1 tab PO BID tab Protonix (Pantoprazole)40 mg tablet,delayed release 40 mg PO DAILY 90 Days - Disposition 01 Discharged Home, Self-Care
[2017-07-17] MEDS: ACETAMINOPHEN 325 MG TABLET PO SCH ×2 (09:52→12:23)
[2017-07-17] MEDS: POLYETHYL GLYCOL 3350 17gm PACKET PO SCH (09:52)
[2017-07-17] MEDS: CETIRIZINE 10 MG TABLET PO SCH (09:52)
[2017-07-17] MEDS: DOCUSATE SODIUM 100 MG CAPSULE PO SCH (09:52)
[2017-07-17] MEDS: ENOXAPARIN 80 MG/0.8 ML INJECTION SQ SCH (09:52)
--- NOTE | 2017-07-17 10:39 | Orthopedic Progress Note ---
Date: Subjective/Severity of Illness: Araseli is feeling good. Her BPs have improved and are stable. Pressures seem to be a little better now. Denies CP or SOA. No cough. Dr. Arce has approved discharge. Resumed her Lovenox and Coumadin. Has a hx of DVT and PE in the past. Pain in the knee is controlled so far. She has been up several times with good tolerance. Orthopedic Objective PO Vital signs: Temperature 98.7 F 07/17/17 07:32 Pulse Rate 61 07/17/17 07:32 Respiratory Rate 18 07/17/17 07:32 Blood Pressure 112/66 07/17/17 07:32 Pulse Oximetry 94 07/17/17 07:32 Height and Weight: Height 5 ft 7 in Weight 206 lb 2.115 oz Body Mass Index 29.4 - Constitutional General Appearance: Present: alert, cooperative, no acute distress - Respiratory Exam Present: non-labored - Cardiovascular Exam Present: pedal pulses intact - Abdominal Exam Present: soft. Absent: tenderness, distended - Extremities Exam Extremities: Present: pulses intact. Absent: calf tenderness - Surgical Site Incision: Mepilex dressing intact, no drainage - Integumentary Exam Present: pink, warm, dry - Neurological Exam Present: intact to light touch, no deficits - Psychiatric Exam Present: alert, normal affect - Labs Result Diagrams: 07/17/17 03:59 07/17/17 03:59 Abnormal lab results 07/17/17 07/17/17 07/17/17 Range/Units 03:59 03:59 03:59 RBC 2.79 L (4.00-5.20) M/MM3 Hgb 8.6 L D (12-16) GM/DL Hct 27.3 L D (36-46) % Neut % (Auto) 68.1 H (33-66) % Lymph % (Auto) 20.8 L (23-45) % [place] % (Auto) 10.1 H (0-9.0) % [place] # (Auto) 1.1 H (0-0.8) T/MM3 INR 1.28 H (0.99-1.21) Chloride 108 H (98-107) MEQ/L BUN 22.0 H (7-17) MG/DL BUN/Creatinine Ratio 28 H (6-26) RATIO H & H 07/15/17 07/16/17 07/17/17 Range/Units 07:34 03:59 03:59 Hgb 12.9 10.3 L D 8.6 L D (12-16) GM/DL Hct 39.6 32.0 L D 27.3 L D (36-46) % Coagulation 07/15/17 07/16/17 07/17/17 Range/Units 07:34 03:59 03:59 INR 1.10 1.14 1.28 H (0.99-1.21) Orthopedic Assessment and Plan (1) Primary osteoarthritis of left knee Status: Acute Assessment and Plan: Using Ultram for pain. Hold BP meds until pressures are better. Resume Lovenox 80mg Q 12hrs until INR >2.0 and pharmacy to adjust coumadin. SCDs for added coverage. Renal function good. BP's improved. Discharge today. PT / OT to work with her. - Anticoagulation Therapy Anticoagulation: Resume home anticoagulant Hospital Course Summary Disclaimer: The visit summary below is not to be considered part of the above Progress Note. Hospital Course: Assessment Status post total left knee arthroplasty by Dr. King 07/15/17 Hypotension-1 day postop Atrial fibrillation - currently in normal sinus rhythm. History of Breast cancer Congestive heart failure (LV diastolic dysfunction)-class II Carotid disease Coronary artery disease GERD (gastroesophageal reflux disease) History the PE and DVT. High blood pressure High cholesterol Neuropathy Izkcdwuyy-eomo-xuocyge (09/2011) Stroke Anxiety Osteoarthritis Plan Fluids increased to 100 cc per hour. Antihypertensive are on hold. Pressures have come up since fluids have been started. Will continue to monitor. Will likely decrease fluids again later today if pressures are holding steady given her CHF. Repeat labs in a.m. to follow hemoglobin and renal function and electrolytes. Appreciate the consult.
--- NOTE | 2017-07-17 10:40 | Discharge Instructions ---
Discharge Plan - Med Rec/Dispo Referrals/Follow Up: Mike King MD [Physician] - 08/09/17 9:45 am Prashant Instructions: [facility] [place]o Postop Instructions Additional Instructions: [facility] ON 07/19/2017 AT 8:30AM FOR PHYSICAL THERAPY ANIVAL. PLEASE COMPLETE THE PAPERWORK IN THE [facility] [place] FOLDER PRIOR TO THE APPOINTMENT. PHONE [phone] Prescriptions: New Tramadol [Ultram] 50 - 100 mg PO Q6H PRN #60 tab PRN Reason: Pain Acetaminophen [Tylenol] 650 mg PO QID #100 tab Continue Warfarin Sodium 4 mg PO DAILY #0 Lisinopril 20 mg PO BID #0 Calcium Carbonate/Vitamin D3 [Calcium 600-Vit D3 200 Tablet] 1 tab PO BID #0 Gabapentin 300 mg PO HS Mirabegron [Myrbetriq] 25 mg PO HS Furosemide 20 mg PO QOD #0 Amlodipine Besylate 5 mg PO DAILY #0 Aspirin [Aspir 81] 81 mg PO DAILY #0 raNITIdine HCl [Ranitidine HCl] 150 mg PO HS #0 Simvastatin 20 mg PO HS #0 Cetirizine HCl [Zyrtec] 10 mg PO DAILY #0 Enoxaparin [Lovenox] 80 mg SQ BID #10 syringe sotalol 80 mg tablet 80 mg PO BID #0 tab glucosamine-chondroitin 250 mg-200 mg tablet 1 tab PO BID tab Protonix (Pantoprazole)40 mg tablet,delayed release 40 mg PO DAILY 90 Days Discharge Instructions/Outpatient Orders: Consulting Provider Discharge Instructions Location: Determined By Patient
[2017-07-17] MEDS ORDERED: WARFARIN 4 MG TABLET PO SCH (12:00)
[2017-07-17] MEDS: FUROSEMIDE 40 MG TABLET PO SCH (12:23)
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
--- NOTE | 2017-07-17 12:56 | Discharge Instructions ---
Discharge Plan - Med Rec/Dispo Referrals/Follow Up: Mike King MD [Physician] - 08/09/17 9:45 am Prashant Instructions: [facility] [place] Postop Instructions Additional Instructions: [facility] ON 07/19/2017 AT 8:30AM FOR PHYSICAL THERAPY ANIVAL. PLEASE COMPLETE THE PAPERWORK IN THE [facility] [place] FOLDER PRIOR TO THE APPOINTMENT. PHONE [phone] Prescriptions: New Tramadol [Ultram] 50 - 100 mg PO Q6H PRN #60 tab PRN Reason: Pain Acetaminophen [Tylenol] 650 mg PO QID #100 tab Ferrous Sulfate 325 mg PO DAILY #100 tablet.dr Continue Warfarin Sodium 4 mg PO DAILY #0 Lisinopril 20 mg PO BID #0 Calcium Carbonate/Vitamin D3 [Calcium 600-Vit D3 200 Tablet] 1 tab PO BID #0 Gabapentin 300 mg PO HS Mirabegron [Myrbetriq] 25 mg PO HS Furosemide 20 mg PO QOD #0 Amlodipine Besylate 5 mg PO DAILY #0 Aspirin [Aspir 81] 81 mg PO DAILY #0 raNITIdine HCl [Ranitidine HCl] 150 mg PO HS #0 Simvastatin 20 mg PO HS #0 Cetirizine HCl [Zyrtec] 10 mg PO DAILY #0 Enoxaparin [Lovenox] 80 mg SQ BID #10 syringe sotalol 80 mg tablet 80 mg PO BID #0 tab glucosamine-chondroitin 250 mg-200 mg tablet 1 tab PO BID tab Protonix (Pantoprazole)40 mg tablet,delayed release 40 mg PO DAILY 90 Days Discharge Instructions/Outpatient Orders: Consulting Provider Discharge Instructions Location: Determined By Patient Consulting Provider Discharge Instructions Location: Determined By Patient - Disposition 01 Discharged Home, Self-Care
[2017-07-17 15:57] VITALS: BP 115/64; PULSE 60; RESP 16; TEMP 97.1; O2SAT 91
[2017-07-17] MEDS ORDERED: BISACODYL 10 MG SUPPOSITORY RECTALLY SCH (20:00)
== END 2017-07-17 16:35 | disposition home health service (06) | DRG 470 ==
LOC: SRG 07-15 06:37
PROVIDERS: ADMIT Orthopaedic Surgery; ATTEND Orthopaedic Surgery